=== PATIENT | male | born 1930 | race Caucasian/White ===

== ENCOUNTER 2016-04-25 14:25 | Outpatient (CLI) | payer MEDICARE, OTHER ==
[~2016-04-25 14:25] MED LIST: ASCO500T9 PO; ATOR40TA PO; ENOX40DI SQ; FERR1TAB44 PO; GLIP5TAB13 PO; HYDR-552 PO; INSU100V28 SQ; LACT1CAP61 PO; LEVO500T15 PO; LEVO50TA PO; PROT946L PO; [UNRECOGNIZED DRUG - CODE] PO
== END 2016-04-25 23:59 | disposition home or self-care (01) ==
LOC: RAD 14:25
PROVIDERS: ATTEND Podiatrist Foot & Ankle Surgery
DX: S82.51XA Displaced fracture of medial malleolus of right tibia, initial encounter for closed fracture (principal); M81.8 Other osteoporosis without current pathological fracture; I70.90 Unspecified atherosclerosis; X58.XXXA Exposure to other specified factors, initial encounter; Y93.89 Activity, other specified; Y92.89 Other specified places as the place of occurrence of the external cause; Y99.8 Other external cause status
CPT/HCPCS: 73610-TC

== ENCOUNTER 2016-05-02 14:58 | Outpatient (CLI) | payer MEDICARE, OTHER | END 2016-05-02 23:59 | disposition home or self-care (01) | LOC: WOU 14:58 | PROVIDERS: ATTEND Podiatrist Foot & Ankle Surgery | DX: Z09 Encounter for follow-up examination after completed treatment for conditions other than malignant neoplasm (principal); Z87.81 Personal history of (healed) traumatic fracture; E11.42 Type 2 diabetes mellitus with diabetic polyneuropathy; L85.3 Xerosis cutis; M62.561 Muscle wasting and atrophy, not elsewhere classified, right lower leg; Z89.421 Acquired absence of other right toe(s); Z86.718 Personal history of other venous thrombosis and embolism; I12.9 Hypertensive chronic kidney disease with stage 1 through stage 4 chronic kidney disease, or unspecified chronic kidney disease; E11.22 Type 2 diabetes mellitus with diabetic chronic kidney disease; N18.9 Chronic kidney disease, unspecified | CPT/HCPCS: G0463 ==

== ENCOUNTER 2017-03-01 23:24 | Inpatient (IN) | payer MEDICARE, OTHER ==
[~2017-03-01] VITALS: Ht 175.3 cm; Wt 91.2 kg
--- NOTE | 2017-03-01 23:30 | NUR ---
TO BED 4 AN 86 YO MALE PATIENT BIBFAMILY FROM HOME, PT C/O LEFT SIDED CP X 1 HOUR DENIES SOB. UPON ARRIVAL, PATIENT IS AAOX4, NAD NOTED. VSS. NONDIPHORETIC. PLACED ON CARDIAC AND VS MONITORING. COMFORT MEASURES RENDERED.
[2017-03-02] VITALS (43 sets, daily range): BP systolic 59–151; BP diastolic 42–103
--- NOTE | 2017-03-02 | NUR ---
started a saline lock on the left forearm g18, blood drawn and sent to lab.
[2017-03-02 00:11] LABS: BASOPHILS % (AUTO) 0.4 % (0.0-2.0); EOSINOPHILS # (AUTO) 0.2 /CMM (0.0-0.7); EOSINOPHILS % (AUTO) 1.7 % (0.0-6.0); HEMATOCRIT 34 % (39-51); HEMOGLOBIN 11.2 g/dL (13.5-17.5); LYMPHOCYTES % (AUTO) 9.5 % (20.0-44.0); MEAN CORPUSCULAR HEMOGLOBIN 32 PG (26.0-33.0); MEAN CORPUSCULAR HGB CONC 33 g/dl (31.0-36.0); MEAN CORPUSCULAR VOLUME 96 fL (80-96); MONOCYTES # (AUTO) 0.7 /CMM (0.1-1.30); MONOCYTES % (AUTO) 6.6 % (2.0-12.0); NEUTROPHILS # (AUTO) 8.6 /CMM (1.8-8.9); NEUTROPHILS % (AUTO) 81.8 % (43.0-81.0); PLATELET COUNT (AUTO) 172 /CMM (150-450); RED BLOOD CELL COUNT(AUTO) 3.48 MIL/uL (4.5-6.0); WHITE BLOOD COUNT (AUTO) 10.5 K/uL (4.3-11.0)
[2017-03-02 00:22] LABS: CARBON DIOXIDE 18 mmol/L (21-32); CHLORIDE 108 mmol/L (98-107); CREATININE 2.3 mg/dL (0.6-1.3); GLUCOSE 144 mg/dL (74-106); POTASSIUM 5.6 mmol/L (3.5-5.1); SODIUM SERUM 137 mmol/L (136-145); UREA NITROGEN, BLOOD 53 mg/dL (7-18)
[2017-03-02 00:41] LABS: TROPONIN I 0.764 ng/mL (0.00-0.056)
[2017-03-02] MEDS ORDERED: ASPIRIN 325 MG TABLET ONE (00:49)
[2017-03-02] MEDS ORDERED: IV NS 0.9% 250 ML IV ONE (00:49)
[2017-03-02] MEDS ORDERED: IOHEXOL-350 100 ML VIAL IV ONE (00:49)
--- NOTE | 2017-03-02 00:55 | NUR ---
PT TO CT
[2017-03-02] MEDS ORDERED: ASPIRIN 325 MG TABLET PO ONE (01:00)
[2017-03-02] MEDS ORDERED: IV NS 0.9% 1,000 ML BAG IV ONE (01:00)
[2017-03-02 01:02] LABS: INR 0.95 (0.87-1.13); PROTHROMBIN TIME 9.9 SECS (9.5-12.7)
--- NOTE | 2017-03-02 02:10 | NUR ---
Report given to Macey GARCIA for tele admission and chantel.
[2017-03-02] MEDS ORDERED: HYDROCODONE/APAP 5/325MG 1 EACH TABLET PO PRN (02:30)
--- NOTE | 2017-03-02 02:40 | NUR ---
TELE/RN NOTES RECEIVED PT. FROM ER VIA JAE. PT. IS AWAKE, ALERT AND ORIENTED X3. BREATHING EVEN AND UNLABORED ON 2LPM O2 VIA NC. NO SOB, RESPIRATORY DISTRESS OR COMPLAINTS OF PAIN NOTED AT THIS TIME. PT. HAS NO COMPLAINTS OF CHEST PAIN AT THIS TIME. ORIENTED PT. TO ROOM. PLACED EXTERNAL CAR TOP BOLTER ON PT. PT. WITH LEFT FOREARM 18 GAUGE IV SALINE LOCK PRESENT, PATENT AND INTACT. PT. WITH FAMILY MEMBER PRESENT AT BEDSIDE. BED LOCKED AND IN LOWEST POSITION, SIDE RAILS UP X3, BED ALARM ON, CALL LIGHT WITHIN REACH. AWAITING ADMITTING ORDERS. WILL CONTINUE TO MONITOR.
--- NOTE | 2017-03-02 02:43 | NUR ---
Transferred patient to tele bed 308-2 via als protocol, no incident noted.
[2017-03-02] MEDS ORDERED: MORPHINE SULFATE INJ 2 MG/ML DISP.SYRIN IV PRN ×2 (03:00→08:00)
[2017-03-02] MEDS ORDERED: ZOLPIDEM TARTRATE 5 MG TABLET PO PRN (03:00)
[2017-03-02] MEDS ORDERED: ACETAMINOPHEN 325 MG TABLET PO PRN (03:00)
[2017-03-02] MEDS ORDERED: ONDANSETRON HCL/PF 4 MG/2 ML VIAL IVP PRN (03:00)
--- NOTE | 2017-03-02 03:15 | NUR ---
TELE/RN NOTES PT. IS REFUSING TO CHANGE INTO GOWN. PT. REFUSING FULL BODY CHECK. PT. STATES HE DOES NOT HAVE ANY OPEN WOUNDS AND HE IS COMFORTABLE RIGHT NOW. WILL ATTEMPT AGAIN AT A LATER TIME. WILL CONTINUE TO MONITOR.
[2017-03-02] MEDS: IV NS 0.9% 1,000 ML IV PRN ×2 (04:40→22:07)
--- NOTE | 2017-03-02 06:00 | NUR ---
TELE/RN NOTES PT. CONTINUES TO REFUSE BODY CHECK AND PICTURES. PT. STATES HE JUST WANTS TO REST. NO COMPLAINTS OF CHEST PAIN NOTED AT THIS TIME.
[2017-03-02 06:22] LABS: BASOPHILS % (AUTO) 0.3 % (0.0-2.0); EOSINOPHILS % (AUTO) 0.1 % (0.0-6.0); HEMATOCRIT 31 % (39-51); HEMOGLOBIN 10.3 g/dL (13.5-17.5); LYMPHOCYTES # (AUTO) 0.8 /CMM (0.8-4.8); LYMPHOCYTES % (AUTO) 6.7 % (20.0-44.0); MEAN CORPUSCULAR HEMOGLOBIN 32 PG (26.0-33.0); MEAN CORPUSCULAR HGB CONC 33 g/dl (31.0-36.0); MEAN CORPUSCULAR VOLUME 96 fL (80-96); MONOCYTES # (AUTO) 0.8 /CMM (0.1-1.30); MONOCYTES % (AUTO) 6.6 % (2.0-12.0); NEUTROPHILS # (AUTO) 10.4 /CMM (1.8-8.9); NEUTROPHILS % (AUTO) 86.3 % (43.0-81.0); PLATELET COUNT (AUTO) 156 /CMM (150-450); RDW COEFFICIENT OF VARIATION 15.1 (11.5-15.0); WHITE BLOOD COUNT (AUTO) 12.1 K/uL (4.3-11.0)
--- NOTE | 2017-03-02 06:46 | NUR ---
TELE/RN NOTES PT. IS LYING IN BED RESTING. BREATHING EVEN AND UNLABORED ON 2LPM O2 VIA NC. NO SOB, RESPIRATORY DISTRESS OR COMPLAINTS OF PAIN NOTED AT THIS TIME. NO COMPLAINTS OF CHEST PAIN NOTED AT THIS TIME AND THROUGHOUT SHIFT. PT. WITH EXTERNAL HEEL STAINER PRESENT AND INTACT. CURRENT RHYTHM = SINUS RHYTHM WITH FIRST DEGREE AV BLOCK HR 92. PT. WITH LEFT FOREARM 18 GAUGE IV SALINE LOCK PRESENT, PATENT AND INTACT ADMINISTERING TO PT. NS @ 80ML/HR. ALL PT. NEEDS MET. BED LOCKED AND IN LOWEST POSITION, SIDE RAILS UP X3, BED ALARM ON, CALL LIGHT WITHIN REACH. WILL ENDORSE TO DAYSHIFT NURSE FOR CONTINUITY OF CARE.
[2017-03-02 07:23] LABS: CALCIUM, SERUM 8.9 mg/dL (8.5-10.1); CARBON DIOXIDE 21 mmol/L (21-32); CHLORIDE 108 mmol/L (98-107); CREATININE 2.3 mg/dL (0.6-1.3); GLUCOSE 141 mg/dL (74-106); MAGNESIUM 1.8 mg/dL (1.8-2.4); PHOSPHORUS 3.7 mg/dL (2.5-4.9); POTASSIUM 5.6 mmol/L (3.5-5.1); SODIUM SERUM 139 mmol/L (136-145); UREA NITROGEN, BLOOD 53 mg/dL (7-18)
--- NOTE | 2017-03-02 07:45 | NUR ---
SINGLE END SEWER OPENING NOTE PATIENT IS ALERT AND ORIENTED x3. NO PAIN AT THIS TIME. NO SOB OR DISTRESS NOTED. CALL LIGHT WITHIN REACH. SAFETY MEASURES IMPLEMENTED. ABLE TO COMMUNICATE NEEDS. BEDREST. PATIENT REFUSING BODY CHECK AT THIS TIME. LEFT FOREARM IV INTACT AND PATENT NO REDNESS OR SWELLING NOTED. IV FLUIDS RUNNING AT 80 ML/HR AT THIS TIME. PENDING AM LABS, WILL MONITOR FOR RESULTS. HAS CARDIAC CONSULT WITH DR. HENSLEY. NPO AT [facility] TIME FOR POSSIBLE STRESS TEST. WILL CONTINUE TO MONITOR
[2017-03-02] MEDS ORDERED: HYDROMORPHONE INJ 2 MG/ML DISP.SYRIN IV PRN (08:00)
[2017-03-02] MEDS: glipiZIDE 5 MG TABLET PO SCH ×2 (08:31→16:28)
[2017-03-02] MEDS: FERROUS SULFATE (325 MG) 325 MG/TAB TABLET PO SCH ×2 (08:32→16:28)
[2017-03-02] MEDS: ASPIRIN EC 81 MG TABLET.DR PO SCH (08:32)
[2017-03-02] MEDS: LEVOTHYROXINE SODIUM 50 MCG TABLET PO SCH (08:32)
[2017-03-02] MEDS ORDERED: ENOXAPARIN SODIUM 40 MG/0.4 ML DISP.SYRIN SQ SCH (09:00)
[2017-03-02] MEDS ORDERED: ASCORBIC ACID 500 MG TABLET PO SCH (09:00)
--- NOTE | 2017-03-02 16:58 | NUR ---
RN NOTE CALLED NURSES TO ROOM. PATIENT WAS UNRESPONSIVE IN RESTROOM. MYSELF AND CHARGE NURSE WENT TO CHECK ON PATIENT, PATIENT WAS SITTING ON TOILET SLUMPED OVER KNEES. PATIENT WAS STILL NOT RESPONDING. NOT ABLE TO ASSESS PATIENT AND NO PULSE WAS TAKEN. PATIENT WAS THEN MOVED OVER TO BED WITH ASSISTANCE. Addendum: 03/02/17 at 1807 by JAVIER CHRISTINA RN INCIDENT #:[id number]
--- NOTE | 2017-03-02 16:58 | NUR ---
RN NOTE PATIENT WAS LIFTED BY THREE NURSES AND CARRIED OVER TO BED WITH HELP OF TWO GREASE BUFFER'S WELL. PATIENT LAID ON BED, WHERE CPR WAS INITIATED
--- NOTE | 2017-03-02 16:59 | NUR ---
RN NOTE CODE BLUE WAS CALLED. PATIENT PLACED ON PADS, CPR INITIATED. ASSISTED VENTILATION VIA BVM
--- NOTE | 2017-03-02 17:00 | NUR ---
RN NOTE CODE BLUE TEAM ARRIVES TO ROOM 311-2.
--- NOTE | 2017-03-02 17:03 | NUR ---
JOSE NOTE PATIENT INTUBATED BY ER PHYSICIAN WITH 7 04/22 ET TUBE. CPR IN PROGRESS. Addendum: 03/02/17 at 1725 by JAVIER CHRISTINA RN VENT SETTINGS FOLLOWED AC: 16 TIDAL VOLUME: 600 PEEP: 5 FI 02: 100%
--- NOTE | 2017-03-02 17:05 | NUR ---
RN NOTE POSITIVE ROSC. 100 MG ROCORODIUM/ 20 MG OF ETOMIDATE BY ER, RN.
--- NOTE | 2017-03-02 17:07 | NUR ---
RN NOTE VITAL SIGNS BP: 184/107 P: 142 02: WAS NOT ABLE TO READ T: ATTEMPTED UNABLE TO OBTAIN
--- NOTE | 2017-03-02 17:09 | NUR ---
RN NOTE PRIMARY MD- DR. PERNELL SAMPSON AWARE ABOUT LYDIA BLUE
--- NOTE | 2017-03-02 17:09 | NUR ---
RN NOTE EKG POST CARDIAC ARREST COMPLETED
--- NOTE | 2017-03-02 17:15 | NUR ---
RN NOTE PATIENT TRANSFERRED TO ICU -ROOM 254.
--- NOTE | 2017-03-02 17:17 | NUR ---
RN NOTE CODE STEMI CALLED BY ER PHYSICIAN
--- NOTE | 2017-03-02 17:30 | NUR ---
NAIL ASSEMBLY MACHINE OPERATOR; RECEIVED PT S/P CODE BLUE AND CODE STEMI. PT INTUBATED VIA ETT 7.5 ETT, 23CM AT THE LIP LINE. PT AT THIS TIME UNRESPONSIVE, PT AT THIS TIME NO GAG REFLEX, PUPIL EQUAL AND REACTIVE SLUGGISH AT 2MM. MID LINE STARTED TO LEFT UPPER ARM 18G. ORDERS ENTERED FOR STAT CHEST XRAY, CHEMISTRY, ABG. WILL WAIT FOR RESULTS AND NOTIFY MDS Addendum: 03/02/17 at 1806 by JACI GERBER RN VENT SETTING AC 16, TV 500, 100% FIO2 PEEP 5
[2017-03-02 17:35] LABS: ABG BASE EXCESS -16.4 mmol/L; ABG OXYGEN SATURATION 98.6 % (92.0-98.5); ABG PCO2 37.5 mmHg (35.0-45.0); ABG PH 7.121 (7.350-7.450); ABG PO2 305.6 mmHg (75.0-100.0); AaDO2 369.9 mmHg; COHb 0.2 % (0.5-1.5); MetHb 0.8 % (0.0-1.5); O2Hb 97.6 % (94.0-97.0); PEEP,BG 5 cm H2O; SITE, ABG Right Radial; VENT MODE, BG AC 16 500; VT, ABG 500 mL
--- NOTE | 2017-03-02 17:45 | NUR ---
RT NOTE: PATIENT WAS ORALLY INTUBATED BY WITH 7.5 ETT SECURED AT 23CM MID LIP LINE. POSITIVE COLOR CHANGE ON CAPNOMETER. BILATERAL B/S NOTED-CLEAR LEFT AND DIMINISHED RIGHT THROUGHOUT LUNGS. PATIENT WAS TRANSPORTED TO ICU AND PLACED ON PB 840 VENT. SETTINGS PER MD ORDER. VENT ALARMS SET AND AUDIBLE. VENT PLUGGED INTO RED OUTLET. AMBU BAG AT [facility]. ABG DONE AND REPORTED TO CHARGE NURSE(KURT).
[2017-03-02] MEDS ORDERED: ASPIRIN 300 MG/SUPP.RECT RC STA (17:53)
[2017-03-02 17:57] LABS: BASOPHILS % (AUTO) 0.2 % (0.0-2.0); EOSINOPHILS % (AUTO) 0.2 % (0.0-6.0); HEMATOCRIT 32 % (39-51); HEMOGLOBIN 10.5 g/dL (13.5-17.5); LYMPHOCYTES # (AUTO) 2.3 /CMM (0.8-4.8); LYMPHOCYTES % (AUTO) 18.8 % (20.0-44.0); MEAN CORPUSCULAR HEMOGLOBIN 32 PG (26.0-33.0); MEAN CORPUSCULAR HGB CONC 33 g/dl (31.0-36.0); MEAN CORPUSCULAR VOLUME 97 fL (80-96); MONOCYTES # (AUTO) 0.8 /CMM (0.1-1.30); MONOCYTES % (AUTO) 6.9 % (2.0-12.0); NEUTROPHILS # (AUTO) 8.9 /CMM (1.8-8.9); NEUTROPHILS % (AUTO) 73.9 % (43.0-81.0); PLATELET COUNT (AUTO) 145 /CMM (150-450); RDW COEFFICIENT OF VARIATION 15.2 (11.5-15.0); RED BLOOD CELL COUNT(AUTO) 3.29 MIL/uL (4.5-6.0)
--- NOTE | 2017-03-02 18:06 | NUR ---
MEDICAL TECHNICIAN; MD DR. WILSON NOTIFIED REGARDING ABG RESULTS, ORDERS GIVEN. RT NOTIFIED. VENT SETTINGS OF AC 24, TV 600, TITRATE FIO2. DR. HENSLEY NOTIFIED REGARDING CODE BLUE. NEW ORDERS GIVEN TO START HEPARIN DRIP PER PROTOCOL.
[2017-03-02 18:08] LABS: AMYLASE 27 U/L (25-115); CALCIUM, SERUM 9.5 mg/dL (8.5-10.1); CARBON DIOXIDE 16 mmol/L (21-32); CHLORIDE 109 mmol/L (98-107); CREATININE 2.6 mg/dL (0.6-1.3); GLUCOSE 214 mg/dL (74-106); MAGNESIUM 1.8 mg/dL (1.8-2.4); POTASSIUM 4.6 mmol/L (3.5-5.1); SODIUM SERUM 141 mmol/L (136-145); UREA NITROGEN, BLOOD 53 mg/dL (7-18)
[2017-03-02 18:20] LABS: CHOLESTEROL 126 mg/dL (<200); HDL CHOLESTEROL 46 mg/dL (40-60); LDL 73 mg/dL (0-99); TRIGLYCERIDES 116 mg/dL (30-150)
[2017-03-02] MEDS ORDERED: HEPARIN SODIUM, PORCINE 5000 UNITS/1 ML VIAL IV ONE (18:30)
[2017-03-02 18:32] LABS: TROPONIN I 0.836 ng/mL (0.00-0.056)
[2017-03-02] MEDS: HEPARIN INFUSION/D5W 500 ML IV PRN (19:19)
--- NOTE | 2017-03-02 19:30 | NUR ---
RN INITIAL NOTES RECEIVED THE PATIENT LETHARGIC ON BED, POST CODE BLUE @ 1700 AND INTUBATED. RESPONSIVE TO PAINFUL STIMULI. VENT SETTINGS AC 24, TV 600, FIO2 80%, PEEP5, 7.5/23@LIP, SATURATING WELL, NO S/S OF RESP DISTRESS. CURRENTLY JUNCTIONAL ON THE MONITOR, HR 90'S. PALMER CATH IN PLACE. LEFT FOREARM 18 AND LEFT UPPER ARM MIDLINE WITH NS @ 125MLS/HR AND HEPARIN DRIP @ 1300 UNITS/HR. PTT TO BE DRAWN ON 03/03 @ 0030. BILATERAL WRIST RESTRAINTS IN PLACE FOR PATIENT SAFETY. BED LOW AND LOCKED, SIDERAILS UP, BED ALARM ON. WILL MONITOR
--- NOTE | 2017-03-02 19:40 | NUR ---
RN NOTES NOTIFIED DR WILSON ABOUT 0 ABG RESULTS FOR THE PATIENT. PER MD, NO CHANGES TO VENT SETTINGS.
[2017-03-02 19:43] LABS: ABG BASE EXCESS -10.9 mmol/L; ABG OXYGEN SATURATION 98.7 % (92.0-98.5); ABG PCO2 21.8 mmHg (35.0-45.0); ABG PH 7.376 (7.350-7.450); AaDO2 153.5 mmHg; COHb 0.3 % (0.5-1.5); MetHb 0.8 % (0.0-1.5); O2Hb 97.6 % (94.0-97.0); PEEP,BG 5 cm H2O; SITE, ABG Right Brachial; VT, ABG 600 mL
[2017-03-02] MEDS: PROPOFOL 100 ML IV PRN (19:57)
--- NOTE | 2017-03-02 21:15 | NUR ---
RN SAKSHI INSERTED ORAL GASTRIC TUBE PER MD ORDER. PLACEMENT VERIFIED VIA AUSCULTATION AND ASPIRATION OF GASTRIC FLUID. VERIFIED WITH SENIOR UI DESIGNERJOSE REDDY WELL.
[2017-03-02] MEDS ORDERED: NOREPINEPHRINE 4 MG/4 ML AMPUL IV ONE (21:56)
--- NOTE | 2017-03-02 21:56 | NUR ---
RN NOTES TALKED TO DR ORTA TO NOTIFY HIM OF BP 79/59 WITH HIGHEST SBP @ 80'S. HR IS 95. CURRENTLY RUNNING NS @ 125MLS/HR WITH MINIMAL URINE OUTPUT. DR ORTA ORDERED LEVOPHED DRIP REGULAR CONCENTRATION TO BE STARTED
[2017-03-02] MEDS ORDERED: NOREPINEPHRINE 8 MG in IV D5W 500 ML IV PRN ×4 (22:00)
[2017-03-02] MEDS: ATORVASTATIN 40 MG TABLET PO SCH (22:07)
[2017-03-02] MEDS: NOREPINEPHRINE 8 MG in IV D5W 500 ML IV PRN (22:13)
[2017-03-03] VITALS (104 sets, daily range): BP systolic 45–205; BP diastolic 25–116
--- NOTE | 2017-03-03 01:57 | NUR ---
RN SAKSHI ARENAS FROM LAB REPORTED PATIENT'S PTT > 170; PER PROTOCOL, WILL HOLD INFUSION FOR 60MIN THEN RESUME AT RATE REDUCED BY 250 UNITS/HR. THEN REPEAT PTT AFTER 6 HRS WHICH WILL BE @ 0800
[2017-03-03] MEDS: PROPOFOL 100 ML IV PRN ×2 (02:25→17:41)
[2017-03-03 04:55] LABS: BASOPHILS % (AUTO) 0.1 % (0.0-2.0); EOSINOPHILS % (AUTO) 0.4 % (0.0-6.0); HEMATOCRIT 27 % (39-51); HEMOGLOBIN 8.9 g/dL (13.5-17.5); LYMPHOCYTES # (AUTO) 1.4 /CMM (0.8-4.8); LYMPHOCYTES % (AUTO) 12.6 % (20.0-44.0); MEAN CORPUSCULAR HEMOGLOBIN 32 PG (26.0-33.0); MEAN CORPUSCULAR HGB CONC 33 g/dl (31.0-36.0); MEAN CORPUSCULAR VOLUME 97 fL (80-96); MONOCYTES # (AUTO) 0.9 /CMM (0.1-1.30); MONOCYTES % (AUTO) 7.9 % (2.0-12.0); NEUTROPHILS # (AUTO) 8.8 /CMM (1.8-8.9); PLATELET COUNT (AUTO) 156 /CMM (150-450); RDW COEFFICIENT OF VARIATION 14.9 (11.5-15.0); RED BLOOD CELL COUNT(AUTO) 2.79 MIL/uL (4.5-6.0); WHITE BLOOD COUNT (AUTO) 11.2 K/uL (4.3-11.0)
[2017-03-03] MEDS: IV NS 0.9% 1,000 ML IV PRN ×3 (04:59→23:11)
[2017-03-03 05:21] LABS: ALANINE AMINOTRANSFERASE 310 U/L (12-78); ALBUMIN 2.4 g/dL (3.4-5.0); ALKALINE PHOSPHATASE 110 U/L (46-116); ASPARTATE AMINOTRANSFERASE 327 U/L (15-37); BILIRUBIN,TOTAL 0.7 mg/dL (0.2-1.0); CALCIUM, SERUM 8.6 mg/dL (8.5-10.1); CARBON DIOXIDE 15 mmol/L (21-32); CHLORIDE 111 mmol/L (98-107); CREATININE 2.6 mg/dL (0.6-1.3); GLUCOSE 199 mg/dL (74-106); MAGNESIUM 1.6 mg/dL (1.8-2.4); PHOSPHORUS 2.6 mg/dL (2.5-4.9); SODIUM SERUM 141 mmol/L (136-145); TOTAL PROTEIN, SERUM 5.4 g/dL (6.4-8.2); UREA NITROGEN, BLOOD 54 mg/dL (7-18)
[2017-03-03 05:24] LABS: TROPONIN I 3.042 ng/mL (0.00-0.056)
[2017-03-03 05:26] LABS: CHOLESTEROL 111 mg/dL (<200); HDL CHOLESTEROL 42 mg/dL (40-60); LDL 57 mg/dL (0-99); THYROID STIMULATING HORMONE 1.313 uIU/mL (0.358-3.74); TRIGLYCERIDES 63 mg/dL (30-150)
--- NOTE | 2017-03-03 06:30 | NUR ---
RN CLOSING NOTES HEPARIN DRIP CURRENTLY @ 1050 UNITS/HR, REPEAT PTT @ 0800. LEVO DRIP @ 2MCG/MIN. DIPRIVAN @ 15MCG/KG/MIN. ALL OTHER DUE MEDS GIVEN, AM CARE PROVIDED. OTHERWISE PT REMAINS STABLE. WILL ENDORSE CONTINUITY OF CARE TO AM RN
--- NOTE | 2017-03-03 08:00 | NUR ---
ICU/RN INITIAL NOTES,AM RECEIVED REPORT FROM NIGHT NURSE. PT SEDATED, INTUBATED ETT 7.5, 23CM AT THE LIP. PT ON VENT SETTINGS ORDERED BY MD, NO ACUTE DISTRESS NOTED AT THIS TIME. PT ACCELERATED JUNCTIONAL ON TELE. PALMER CATH IN PLACE, LOW URINE OUTPUT NOTED, MD AWARE. HEPARIN DRIP, LEVOPHED AND DIPRIVAN INFUSING PER PROTOCOL AND PER MD ORDER. PT CURRENTLY NPO EXCEPT MEDS. OG TUBE IN PLACE, VERIFIED. ALL NEEDS WILL BE ATTENDED TO, SAFETY MEASURES TAKEN, BED IN LOW POSITION, SIDE RAILS UP, CALL LIGHT WITHIN REACH. WILL CONTINUE CARE. BILATERAL WRIST RESTRAINTS IN PLACE AND ASSESSED PER PROTOCOL.
[2017-03-03] MEDS ORDERED: ETOMIDATE 2 MG/ML VIAL IV ONE ×2 (08:31→11:00)
[2017-03-03] MEDS: LEVOTHYROXINE SODIUM 50 MCG TABLET PO SCH (08:31)
[2017-03-03] MEDS ORDERED: ROCURONIUM BROMIDE 50 MG/5 ML IV ONE ×3 (08:31→12:28)
[2017-03-03] MEDS: glipiZIDE 5 MG TABLET PO SCH ×2 (08:32→17:10)
[2017-03-03] MEDS: ASPIRIN EC 81 MG TABLET.DR PO SCH (08:32)
--- NOTE | 2017-03-03 09:00 | NUR ---
ICU/RN: SEDATION VACATION, PT OPENS EYES, FOLLOWS COMMANDS. WILL CONTINUE TO MONITOR AND ASSESS
--- NOTE | 2017-03-03 09:10 | NUR ---
ICU/RN: PTT >170, HEPARIN DRIP HELD WILL RESTART IN ONE HOUR PER PROTOCOL.
--- NOTE | 2017-03-03 09:30 | NUR ---
ICU/RN: PT SAW AND ASSESSED BY , PT OPENS EYES, FOLLOWS COMMANDS. PT ON SIMV 4, RATE 12, FIO2 40%. PEEP 5, WILL CONTINUE WEANING AND SEE HOW PT TOLERATES IT.
--- NOTE | 2017-03-03 10:00 | NUR ---
RT PER DR WILSON PATIENT PLACED ON VENT WEANING MODE. PATIENT OFF SEDATION AND RESPONDING TO VERBAL COMMANDS Addendum: 03/03/17 at 1113 by ISABEL POWELL RT Amended: Links added.
--- NOTE | 2017-03-03 10:10 | NUR ---
ICU/RN: PER DR. GIMENEZ WE ARE NOT TO RESUME THE HEPARIN DRIP AT THIS TIME. WILL REASSESS AT A LATER TIME.
[2017-03-03 10:20] LABS: ABG BASE EXCESS -9.8 mmol/L; ABG PCO2 27.7 mmHg (35.0-45.0); ABG PH 7.343 (7.350-7.450); ABG PO2 121.1 mmHg (75.0-100.0); AaDO2 132.2 mmHg; COHb 0.3 % (0.5-1.5); O2Hb 95.7 % (94.0-97.0); SITE, ABG Right Radial
--- NOTE | 2017-03-03 10:30 | NUR ---
ICU/RN: PT EXTUBATED, DIFFICULTY IN BREATHING NOTED, USE OF ACCESSORY MUSCLES. PT ATTEMPTING TO COUGH, HOWEVER; PT IS TO WEAK TO COUGH. WILL CONTINUE TO CLOSELY MONITOR.
--- NOTE | 2017-03-03 10:40 | NUR ---
ICU/RN: RESPIRATORY DISTRESS NOTED, PT UNABLE TO BREATH, O2 SATURATION DECREASING, PER DR. WILSON PT NEEDED TO BE RE-INTUBATED. WILL CONTINUE CARE
--- NOTE | 2017-03-03 11:05 | NUR ---
ICU/RN: CODE BLUE INITIATED AT 1056, SEE CODE BLUE FORM. SUCCESSFUL CODE, ACHIEVED ROSC. WILL CONTINE TO CLOSELY MONITOR
--- NOTE | 2017-03-03 11:06 | NUR ---
RT AT 1056 CODE BLUE CALLED OVER HEAD AND ARRIVED AT PATIENTS ROOM AND IMMEDIATELY BEGAN CPR. PULSE REGAINED AND PATIENT PLACED BACK ON [facility] VENT.
[2017-03-03 11:25] LABS: ABG BASE EXCESS -19.8 mmol/L; ABG OXYGEN SATURATION 98.1 % (92.0-98.5); ABG PCO2 30.7 mmHg (35.0-45.0); ABG PH 7.077 (7.350-7.450); ABG PO2 205.4 mmHg (75.0-100.0); AaDO2 476.9 mmHg; COHb 0.3 % (0.5-1.5); MetHb 0.9 % (0.0-1.5); O2Hb 96.9 % (94.0-97.0); PEEP,BG 0 cm H2O; SITE, ABG Right Radial
[2017-03-03] MEDS ORDERED: SODIUM BICARBONATE SYR 50 MEQ/50 ML DISP.SYRIN IV ONE ×3 (11:30→16:40)
--- NOTE | 2017-03-03 11:38 | NUR ---
RT S/P CARDIAC ARREST, ABG DONE, VENT SETTINGS CHANGED TO VT [address] WILSON Addendum: 03/03/17 at 1156 by ISABEL POWELL RT Amended: Links added.
[2017-03-03 11:41] LABS: BASOPHILS # (AUTO) 0.1 /CMM (0.0-0.2); BASOPHILS % (AUTO) 0.5 % (0.0-2.0); EOSINOPHILS # (AUTO) 0.1 /CMM (0.0-0.7); EOSINOPHILS % (AUTO) 0.7 % (0.0-6.0); HEMATOCRIT 27 % (39-51); HEMOGLOBIN 8.7 g/dL (13.5-17.5); LYMPHOCYTES # (AUTO) 4.9 /CMM (0.8-4.8); MEAN CORPUSCULAR HEMOGLOBIN 32 PG (26.0-33.0); MEAN CORPUSCULAR HGB CONC 33 g/dl (31.0-36.0); MEAN CORPUSCULAR VOLUME 97 fL (80-96); MONOCYTES # (AUTO) 0.9 /CMM (0.1-1.30); NEUTROPHILS # (AUTO) 11.4 /CMM (1.8-8.9); NEUTROPHILS % (AUTO) 65.8 % (43.0-81.0); PLATELET COUNT (AUTO) 166 /CMM (150-450); RDW COEFFICIENT OF VARIATION 15.3 (11.5-15.0); RED BLOOD CELL COUNT(AUTO) 2.73 MIL/uL (4.5-6.0); WHITE BLOOD COUNT (AUTO) 17.4 K/uL (4.3-11.0)
[2017-03-03 11:46] LABS: CARBON DIOXIDE 11 mmol/L (21-32); CHLORIDE 111 mmol/L (98-107); CREATININE 2.9 mg/dL (0.6-1.3); GLUCOSE 302 mg/dL (74-106); POTASSIUM 4.7 mmol/L (3.5-5.1); SODIUM SERUM 140 mmol/L (136-145); UREA NITROGEN, BLOOD 55 mg/dL (7-18)
[2017-03-03 11:59] LABS: TROPONIN I 3.416 ng/mL (0.00-0.056)
[2017-03-03 12:09] LABS: INR 1.27 (0.87-1.13); PROTHROMBIN TIME 13.2 SECS (9.5-12.7)
--- NOTE | 2017-03-03 12:15 | NUR ---
ICU/RN: SECOND CODE BLUE INITIATED AT 1154, CODE SUCCESSFUL. DR. HENSLEY AND AT BEDSIDE, WILL FOLLOW NEW ORDERS. ACHIEVED ROSC. ABG DONE. VENT CHANGES MADE APPROPRIATELY.
[2017-03-03 12:26] LABS: ALBUMIN 2.3 g/dL (3.4-5.0); BILIRUBIN,DIRECT 0.2 mg/dL (0.0-0.2); BILIRUBIN,TOTAL 0.6 mg/dL (0.2-1.0); MAGNESIUM 1.7 mg/dL (1.8-2.4); PHOSPHORUS 4.9 mg/dL (2.5-4.9); TOTAL PROTEIN, SERUM 5.4 g/dL (6.4-8.2)
[2017-03-03] MEDS ORDERED: EPINEPHRINE (1:10,000) SYRINGE 1 MG/10 ML DISP.SYRIN IVP ONE ×2 (12:28→16:39)
[2017-03-03] MEDS ORDERED: CALCIUM CHLORIDE 1,000 MG/10 ML DISP.SYRIN IV ONE (12:28)
--- NOTE | 2017-03-03 12:30 | NUR ---
ICU/RN: REPEAT ECHO DONE. BILATERAL VENOUS DOPPLER ON LOWER EXTREMITIES DONE, DVT'S SEEN IN BOTH LEGS. MD NOTIFIED.
[2017-03-03 12:36] LABS: ABG BASE EXCESS -10.7 mmol/L; ABG OXYGEN SATURATION 98.1 % (92.0-98.5); ABG PCO2 24.9 mmHg (35.0-45.0); ABG PH 7.352 (7.350-7.450); ABG PO2 227.5 mmHg (75.0-100.0); AaDO2 316.8 mmHg; COHb 0.3 % (0.5-1.5); MetHb 1.3 % (0.0-1.5); O2Hb 96.5 % (94.0-97.0); PEEP,BG 0 cm H2O; SITE, ABG Right Radial
[2017-03-03] MEDS ORDERED: FEE PK DOSING 1 MIN EA MC ONE (12:51)
[2017-03-03] MEDS ORDERED: VANCOMYCIN 1 GM in IV D5W 250 ML IV SCH (14:00)
[2017-03-03] MEDS: PIPERACILLIN /TAZOBACTAM 2.25 G in IV D5W 50 ML IV SCH ×2 (14:47→20:46)
--- NOTE | 2017-03-03 16:00 | NUR ---
ICU/RN: PER , WE ARE TO RESUME HEPARIN DRIP AT 900 UNITS/HR. THEN DO A REPEAT APTT IN 6 HOURS AND ADJUST PER PROTOCOL.
[2017-03-03] MEDS: VANCOMYCIN 1 GM in IV D5W 250 ML IV SCH (17:09)
[2017-03-03] MEDS: HEPARIN INFUSION/D5W 500 ML IV PRN (17:42)
[2017-03-03] MEDS: NOREPINEPHRINE 8 MG in IV D5W 500 ML IV PRN (17:43)
--- NOTE | 2017-03-03 17:45 | NUR ---
ICU/RN: INFORMED PT IS AGITATED, INCREASED HEART RATE. ORDERS RECEIVED TO RESUME DIPRIVAN PER PROTOCOL
--- NOTE | 2017-03-03 18:35 | NUR ---
ICU/RN ENDING NOTES,AM REPORT WILL BE ENDORSED TO NIGHT NURSE FOR CONTINUATION OF CARE. PT ON VENT SETTINGS ORDERED. ETT 7.5, 23 AT THE LIP. OG IN PLACE. PT ON TELE, ACCELERATED JUNCTIONAL. PALMER IN PLACE, LOW URINE OUTPUT NOTED. MD AWARE. POST 2 CODE BLUES. PT IS NON RESPONSIVE, DOES NOT FOLLOW COMMANDS. DIPRIVAN JUST STARTED FOR ELEVATED HR, AGITATION.DIP INFUSING AT 10MCG. PICC LINE INSERTED IN RIGHT UPPER ARM. LEVO, HEPARIN, IV FLUIDS INFUSING. ALL NEEDS MET, SAFETY MEASURES TAKEN, BED IN LOW POSITION, SIDE RIALS UP, CALL LIGHT WITHIN REACH. AT BEDSIDE.
--- NOTE | 2017-03-03 20:13 | NUR ---
RN:ICU: PT RECEIVED IN BED, AROUSABLE TO PAINFUL STIMULI, OPENING EYES SPONTANEOUSLY. PT FIGHTING THE VENTILATOR CAUSING IT TO ALARM. SEDATION INCREASED PER PROTOCOL BY 5MCG/KG/MIN FOR COMFORT. D/W DNP REGARDING APPARENT PAIN. ORDERS FOR DILAUDID RECEIVED. D/W DNP REGARDING INCREASED HR 120-130'S SINUS TACHY/AFIB. PER PIPELINE SUPERINTENDENT DIVISION CONTINUE TO MONITOR HR. S/P CODE BLUE ABG RESULTS RELAYED TO DNP NEW ORDERS TO DECREASE RATE TO 20. ADDITIONALLY NEW ORDERS RECEIVED TO GIVE 2GM IV MAGNESIUM TO REPLACE FOR MAG LEVEL 1.7. AT THE BEDSIDE AND UPDATED REGARDING POC. PT ON LOW DOSE LEVOPHED TO SUPPORT BP. WHEN INCREASING SEDATION FOR COMFORT, BP IN TURN DROPS, THERE FOR REQUIRING AN INCREASE IN THE LEVOPHED. PT ON HEPARIN GTT 900 UNITS/HR, NEXT PTT AT 2200. WILL CONTINUE TO MONITOR CLOSELY.
[2017-03-03] MEDS ORDERED: HYDROMORPHONE 1 MG/1 ML DISP.SYRIN IV PRN (20:30)
[2017-03-03] MEDS: Magnesium 1GM/D5W 100ML PREMIX 100 ML IV SCH ×2 (20:45→21:56)
[2017-03-03] MEDS: HYDROMORPHONE INJ 2 MG/ML DISP.SYRIN IV PRN (20:46)
[2017-03-03] MEDS ORDERED: BUMETANIDE INJ 0.25 MG/ML VIAL ONE (21:54)
[2017-03-03] MEDS: ATORVASTATIN 40 MG TABLET PO SCH (21:58)
[2017-03-03] MEDS ORDERED: BUMETANIDE INJ 0.25 MG/ML VIAL IV ONE (22:00)
--- NOTE | 2017-03-03 22:26 | NUR ---
RN:ICU: SPOKE WITH DNP REGARDING HEPARIN GTT BEING USED FOR BILATERAL LOWER EXTREMITY DVT'S INSTEAD OF ACUTE HI. ORDERS TO CHANGE HEPARIN GTT TO NON-ACS. PTT DRAWN AND SENT TO LAB. PENDING RESULTS. WILL FOLLOW PROTOCOL. D/W DNP REGARDING PULMONARY VASCULAR CONGESTION AND LARGE RIGHT EFFUSION ON TODAY'S XRAY. ORDERS TO DECREASE IVF TO 125ML/HR AND GIVEN BUMEX 1 MG ONCE. ORDERS CARRIED OUT. WILL CONTINUE TO MONITOR CLOSELY.
[2017-03-04] VITALS (104 sets, daily range): BP systolic 83–128; BP diastolic 50–84
--- NOTE | 2017-03-04 00:59 | NUR ---
RN:ICU: NEW ORDER PLACED FOR HEPARIN GTT THE PROTOCOL WAS CHANGED FROM ACS TO NON-ACS. SAME BAG OF MEDICATION INFUSING BUT IT APPEARS IF THE MEDICATION WAS NOT SCANNED. HEPARIN GTT RATE CHANGED FROM 900 UNITS/HR TO 750 UNITS PER HOUR FOR PTT 83 BASED ON NON-ACS PROTOCOL. HANH GARCIA VERIFIED. NO BLEEDING NOTED. SEE D/C MEDICATIONS FOR PREVIOUS RATES OF HEPARIN GTT BEFORE NEW ORDERS WAS PLACED.
[2017-03-04] MEDS: HYDROMORPHONE INJ 2 MG/ML DISP.SYRIN IV PRN ×3 (02:54→21:01)
--- NOTE | 2017-03-04 04:30 | NUR ---
RN:ICU: PT PREMEDICATED WITH DILAUDID PRIOR TO BED BATH/ADL'S. PT BEGAN TO FIGHT VENT, ALONG WITH GRIMACING. DIPRIVAN INCREASED PER PROTOCOL FOR SEDATION. BILATERAL SOFT WRIST RESTRAINTS IN PLACE FOR PT SAFETY HE DOES APPEAR TO WAKE UP AT TIMES. SPUTUM SAMPLE COLLECTED PER PROTOCOL. PER HEPARIN GTT FOR NON-ACS PTT 68 NO CHANGE AND PERFORM DAILY PTT. WILL CONTINUE TO MONITOR CLOSELY.
[2017-03-04 04:42] LABS: BASOPHILS % (AUTO) 0.3 % (0.0-2.0); EOSINOPHILS % (AUTO) 0.3 % (0.0-6.0); HEMATOCRIT 24 % (39-51); HEMOGLOBIN 7.9 g/dL (13.5-17.5); LYMPHOCYTES # (AUTO) 1.2 /CMM (0.8-4.8); MEAN CORPUSCULAR HEMOGLOBIN 32 PG (26.0-33.0); MEAN CORPUSCULAR HGB CONC 33 g/dl (31.0-36.0); MEAN CORPUSCULAR VOLUME 95 fL (80-96); MONOCYTES # (AUTO) 0.6 /CMM (0.1-1.30); MONOCYTES % (AUTO) 5.2 % (2.0-12.0); NEUTROPHILS # (AUTO) 10.2 /CMM (1.8-8.9); NEUTROPHILS % (AUTO) 84.2 % (43.0-81.0); PLATELET COUNT (AUTO) 165 /CMM (150-450); RDW COEFFICIENT OF VARIATION 15.3 (11.5-15.0); RED BLOOD CELL COUNT(AUTO) 2.49 MIL/uL (4.5-6.0); WHITE BLOOD COUNT (AUTO) 12.1 K/uL (4.3-11.0)
[2017-03-04 04:57] LABS: ALANINE AMINOTRANSFERASE 261 U/L (12-78); ALBUMIN 2.1 g/dL (3.4-5.0); ALKALINE PHOSPHATASE 99 U/L (46-116); ASPARTATE AMINOTRANSFERASE 135 U/L (15-37); BILIRUBIN,TOTAL 0.8 mg/dL (0.2-1.0); CALCIUM, SERUM 7.6 mg/dL (8.5-10.1); CARBON DIOXIDE 21 mmol/L (21-32); CHLORIDE 111 mmol/L (98-107); GLUCOSE 250 mg/dL (74-106); MAGNESIUM 1.8 mg/dL (1.8-2.4); PHOSPHORUS 2.2 mg/dL (2.5-4.9); SODIUM SERUM 143 mmol/L (136-145); UREA NITROGEN, BLOOD 54 mg/dL (7-18)
[2017-03-04 05:10] LABS: TROPONIN I 2.527 ng/mL (0.00-0.056)
[2017-03-04] MEDS: PIPERACILLIN /TAZOBACTAM 2.25 G in IV D5W 50 ML IV SCH ×3 (05:19→17:12)
--- NOTE | 2017-03-04 06:55 | NUR ---
RN:ICU: AM CHEST XRAY RESULTS REPORTED TO DR ORTA. ORDERS FOR STAT CT CHEST WITHOUT CONTRAST. PT TAKEN TO CT VIA ACLS PROTOCOL, WITH RT AND CT TRANSPORT. UPON ARRIVAL BACK TO ICU DR HENSLEY AT THE BEDSIDE. UPDATES GIVEN. WILL ENDORSE TO ONCOMING SHIFT TO FOLLOW UP WITH CT CHEST RESULTS.
[2017-03-04] MEDS: PROPOFOL 100 ML IV PRN (07:35)
[2017-03-04] MEDS: LEVOTHYROXINE SODIUM 50 MCG TABLET PO SCH (07:36)
--- NOTE | 2017-03-04 08:00 | NUR ---
ICU/RN INITIAL NOTES,AM RECEIVED REPORT FROM NIGHT NURSE. PT SEDATED, INTUBATED ETT 7.5, 23CM AT THE LIP. PT ON VENT SETTINGS ORDERED BY MD, NO ACUTE DISTRESS NOTED AT THIS TIME. PT A.FIB/A.FLUTTER ON TELE. PALMER CATH IN PLACE, URINE OUTPUT NOTED, BUMEX ADMINISTERED OVER NIGHT. HEPARIN DRIP INFUSING AT 750 UNITS/HR PER PROTOCOL. LEVOPHED FOR BP SUPPORT AT 5MCG PER MD ORDER. PT CURRENTLY NPO EXCEPT MEDS. OG TUBE IN PLACE, VERIFIED. CT CHEST DONE, RESULTS RELAYED TO AND DR. WILSON. AT BEDSIDE. ALL NEEDS WILL BE ATTENDED TO, SAFETY MEASURES TAKEN, BED IN LOW POSITION, SIDE RAILS UP, CALL LIGHT WITHIN REACH. WILL CONTINUE CARE. BILATERAL WRIST RESTRAINTS IN PLACE AND ASSESSED PER PROTOCOL.
--- NOTE | 2017-03-04 08:05 | NUR ---
ICU/RN: SEDATION VACATION. WILL ASSESS MENTAL STATUS AND DISCUSS IF NEEDED TO RESTART DIPRIVAN.
[2017-03-04 08:06] LABS: ABG BASE EXCESS -4.8 mmol/L; ABG OXYGEN SATURATION 98.1 % (92.0-98.5); ABG PCO2 18.7 mmHg (35.0-45.0); ABG PH 7.557 (7.350-7.450); ABG PO2 190.7 mmHg (75.0-100.0); AaDO2 144.8 mmHg; COHb 0.3 % (0.5-1.5); MetHb 1.2 % (0.0-1.5); O2Hb 96.6 % (94.0-97.0); PEEP,BG 0 cm H2O; SITE, ABG Right Radial; VT, ABG 650 mL
--- NOTE | 2017-03-04 09:00 | NUR ---
ICU/RN: MD ROUNDS PT ASSESSED BY DR. WILSON. PER NO NEED TO RE-START DIPRIVAN. PAIN MEDICATIONS AVAILABLE IF NEEDED. ALSO DISCUSSED THE CT CHEST RESULTS WITH . AWAITING FOR DR. NAVARRO FOR POSSIBLE CHEST TUBE INSERTION IF DEEMED NECESSARY.
[2017-03-04] MEDS: glipiZIDE 5 MG TABLET PO SCH (09:01)
[2017-03-04] MEDS: ASPIRIN EC 81 MG TABLET.DR PO SCH (09:01)
--- NOTE | 2017-03-04 09:55 | NUR ---
WOUND CARE CONSULT PATIENT SEEN AND SKIN INTEGRITY ASSESSMENT DONE. PATIENT PRESENTS WITH INTACT SACRAL REGION WITH BLANCHABLE REDNESS, LEFT KNEE DRY ABRASION, BILATERAL INNER BUTTOCK FOLD EXCORIATIONS ALL POA. THERE IS ALSO NOTED RIGHT UPPER CHEST BRUISING. PATIENT IS S/P MULTIPLE CODE BLUE WHILE IN ICU. PATIENT WITH CHUCK AT 10, RECOMMEND Z GUARD NEEDED FOR MILD BUTTOCKS EXCORIATIONS. RECOMMEND CONTINUE Q 2 HOUR TURNING, BILATERAL HEEL FLOATING. [facility]. ALL SKIN MANAGEMENT AND PREVENTION MEASURES NOTED TO BE IN PLACE. ALL DISCUSSED WITH NURSING STAFF AT THE BEDSIDE. MD IN AGREEMENT WITH PLAN OF CARE. PATIENT NOTED TO HAVE MULTIPLE CO-MORBIDITIES AT THIS TIME. Addendum: 03/04/17 at 0959 by BISHNU BURGOS Amended: Links added. Addendum: 03/04/17 at 1003 by BISHNU BURGOS WOUND RN ADDENDUM PATIENT ALSO PRESENTS WITH RIGHT MEDIAL ANKLE SCARRING WHICH IS NOTED TO BE POA.
[2017-03-04] MEDS ORDERED: Z GUARD REMEDY 2 OZ OINT TP PRN (10:00)
[2017-03-04] MEDS: Z GUARD REMEDY 2 OZ OINT TP SCH (10:29)
[2017-03-04] MEDS ORDERED: DEXTROSE 50%-WATER 50 ML DISP.SYRIN IV PRN (11:00)
--- NOTE | 2017-03-04 11:30 | NUR ---
ICU/RN: DISCUSSED WITH THAT PT IS DIABETIC WITH NOT SLIDING SCALE. TLO ORDERS RECEIVED FOR NPO SLIDING SCALE Q 6 HORUS WITH MILD SCALE. WILL FOLLOW THROUGH.
[2017-03-04] MEDS: BLOOD SUGAR DIAGNOSTIC 1 EACH STRIP IN SCH ×3 (12:23→23:27)
[2017-03-04] MEDS: INSULIN REGULAR, HUMAN 100 UNIT/ML 3 ML VIAL SQ PRN ×3 (12:41→23:29)
[2017-03-04] MEDS ORDERED: NEUTRA PHOS 1 POWD.PACKET NG ONE (15:30)
[2017-03-04] MEDS: LACTOBACILLUS RHAMNOSUS GG 1 EACH CAP.SPRINK PO SCH (16:07)
[2017-03-04] MEDS: HEPARIN INFUSION/D5W 500 ML IV PRN (17:15)
[2017-03-04] MEDS: NOREPINEPHRINE 8 MG in IV D5W 500 ML IV PRN (17:17)
--- NOTE | 2017-03-04 18:00 | NUR ---
PATIENT RECEIVED ORALLY INTUBATED WITH 7.5 ETT TAPED AT 23 CM VIA ANCHOR FAST ON PB 840 VENT. VENT SETTINGS AND CHANGES PER MD ORDER. ALARMS VERIFIED AND AUDIBLE. VENT PLUGGED INTO RED OUTLET. SUCTIONED AND LAVAGED SMALL-MODERATE AMOUNT OF THICK CLEAR/BLOOD TINGED SECRETIONS. AMBU BAG AT [facility].
--- NOTE | 2017-03-04 18:58 | NUR ---
ICU/RN ENDING NOTES,AM REPORT WILL BE ENDORSED TO NIGHT NURSE. PT ONLY RESPONDS TO PAINFUL STIMULI. PT OFF SEDATION SINCE AM. LOW DOSE LEVO INFUSING FOR BP SUPPORT. AT BEDSIDE. HEPARIN INFUSING PER PROTOCOL. NO S/S OF BLEEDING NOTED. ALL NEEDS ATTENDED TO, SAFETY MEASURES TAKEN, BED IN LOW POSITION, SIDE RIALS UP, CALL LIGHT WITHIN REACH. STILL WAITING FOR TO COME SEE PT FOR POSSIBLE CHEST TUBE. VSS. WILL ENDORSE FOR MELANIE.
--- NOTE | 2017-03-04 19:30 | NUR ---
RN INITIAL NOTES RECEIVED THE PT OBTUNDED ON BED, NO SEDATION, ONLY AROUSABLE TO PAINFUL STIMULI. INTUBATED AND ON VENT WITH SETTINGS AC 14, TV 600, 50% FIO2, P5, SATURATING @ 100% WITH NO S/S OF RESP DISTRESS. CURRENTLY AFIB ON THE MONITOR, HR 90-110'S; CURRENTLY ON LEVO DRIP @ 5MCG/MIN FOR BP SUPPORT. HEPARIN DRIP RUNNING @ 750 UNITS/HR. PALMER CATH INTACT. LEFT UPPER ARM MIDLINE AND RIGHT UPPER ARM PICC FLUSHED AND PATENT, NO S/S OF INFILTRATION/INFECTION, DRESSINGS CDI. BED LOW AND LOCKED, SIDERAILS UP, BILATERAL SOFT WRIST RESTRAINTS IN PLACE FOR SAFETY, BED ALARM ON. WILL MONITOR Addendum: 03/04/17 at 2001 by ARTHUR PARSONS RN DISREGARD NOTED HEART RHYTHM ABOVE. CORRECT RHYTHM IS SR/ST WITH FIRST DEGREE HB, HR 90-110'S. ALSO, ETT IS 7.5@LIP
[2017-03-04] MEDS: ATORVASTATIN 40 MG TABLET PO SCH (22:01)
[2017-03-05] VITALS (104 sets, daily range): BP systolic 87–134; BP diastolic 49–88
[2017-03-05] MEDS: PIPERACILLIN /TAZOBACTAM 2.25 G in IV D5W 50 ML IV SCH ×3 (04:25→21:17)
[2017-03-05 04:42] LABS: BASOPHILS % (AUTO) 0.4 % (0.0-2.0); EOSINOPHILS # (AUTO) 0.3 /CMM (0.0-0.7); EOSINOPHILS % (AUTO) 2.1 % (0.0-6.0); HEMATOCRIT 22 % (39-51); HEMOGLOBIN 7.4 g/dL (13.5-17.5); LYMPHOCYTES % (AUTO) 8.1 % (20.0-44.0); MEAN CORPUSCULAR HEMOGLOBIN 32 PG (26.0-33.0); MEAN CORPUSCULAR HGB CONC 34 g/dl (31.0-36.0); MEAN CORPUSCULAR VOLUME 96 fL (80-96); MONOCYTES # (AUTO) 0.7 /CMM (0.1-1.30); MONOCYTES % (AUTO) 5.5 % (2.0-12.0); NEUTROPHILS % (AUTO) 83.9 % (43.0-81.0); PLATELET COUNT (AUTO) 150 /CMM (150-450); RDW COEFFICIENT OF VARIATION 14.9 (11.5-15.0); RED BLOOD CELL COUNT(AUTO) 2.31 MIL/uL (4.5-6.0); WHITE BLOOD COUNT (AUTO) 11.9 K/uL (4.3-11.0)
[2017-03-05 05:04] LABS: ALANINE AMINOTRANSFERASE 211 U/L (12-78); ALKALINE PHOSPHATASE 99 U/L (46-116); ASPARTATE AMINOTRANSFERASE 70 U/L (15-37); BILIRUBIN,TOTAL 0.8 mg/dL (0.2-1.0); CALCIUM, SERUM 7.7 mg/dL (8.5-10.1); CARBON DIOXIDE 22 mmol/L (21-32); CHLORIDE 109 mmol/L (98-107); CREATININE 3.1 mg/dL (0.6-1.3); GLUCOSE 186 mg/dL (74-106); MAGNESIUM 1.6 mg/dL (1.8-2.4); SODIUM SERUM 142 mmol/L (136-145); TOTAL PROTEIN, SERUM 5.3 g/dL (6.4-8.2); UREA NITROGEN, BLOOD 52 mg/dL (7-18)
[2017-03-05 05:08] LABS: TROPONIN I 1.224 ng/mL (0.00-0.056)
[2017-03-05] MEDS: BLOOD SUGAR DIAGNOSTIC 1 EACH STRIP IN SCH ×3 (05:10→17:20)
[2017-03-05] MEDS: INSULIN REGULAR, HUMAN 100 UNIT/ML 3 ML VIAL SQ PRN ×3 (05:11→17:21)
--- NOTE | 2017-03-05 06:00 | NUR ---
RN NOTES TALKED TO DR WILSON ON THE PHONE. UPDATED HIM OF CURRENT PATIENT CONDITION. DR WILSON REQUESTED FOR DR NAVARRO'S OFFICE TO BE CALLED TO CHECK DR NAVARRO'S AVAILABILITY FOR CONSULTATION
[2017-03-05] MEDS ORDERED: Magnesium 1GM/D5W 100ML PREMIX 100 ML IV ONE (06:12)
[2017-03-05] MEDS: Magnesium 1GM/D5W 100ML PREMIX 100 ML IV SCH ×2 (06:16→08:14)
--- NOTE | 2017-03-05 06:25 | NUR ---
RN CLOSING NOTES PT REMAINS STABLE OF THE MOMENT. ALL DUE MEDS GIVEN, AM CARE PROVIDED. WILL ENDORSE CONTINUITY OF CARE TO AM RN
--- NOTE | 2017-03-05 06:45 | NUR ---
RN NOTES CALLED DR NAVARRO'S OFFICE AND LEFT A MESSAGE FOR HIS AVAILABILITY FOR CONSULTATION. WILL ENDORSE TO AM JOSE
--- NOTE | 2017-03-05 07:47 | NUR ---
RT PATIENT REC'D ORALLY INTUBATED WITH A 7.5 ETT SECURED VIA ANCHOR FAST AT 23CM MID LIP. VENT SETTINGS SET BY MD RODRÍGUEZ. VENT ALARMS CHECKED + AUDIBLE. CUFF PRESSURE CHECKED LUMBER BUYER. SX'D WITH REBEKA AMT PALE SEMITHICK SECRETIONS. B/S DIM COARSE. AMBU BAG AT [facility]. PATIENT SEDATED AND APPEARS COMFORTABLE AT THIS TIME. Addendum: 03/05/17 at 1041 by ISABEL POWELL RT Amended: Links added.
[2017-03-05] MEDS: Z GUARD REMEDY 2 OZ OINT TP SCH (08:14)
[2017-03-05] MEDS: LACTOBACILLUS RHAMNOSUS GG 1 EACH CAP.SPRINK PO SCH ×2 (08:14→17:20)
[2017-03-05] MEDS: LEVOTHYROXINE SODIUM 50 MCG TABLET PO SCH (08:14)
[2017-03-05] MEDS: ASPIRIN EC 81 MG TABLET.DR PO SCH (08:14)
--- NOTE | 2017-03-05 08:54 | NUR ---
IMAGING ENGINEER NOTE 0720: Received patient obtunded, able to respond to pain but does not follow commands. With ETT to vent, tolerated settings at this time. Noted with thin whitmore secretions when suctioned. With OGT intact, noted with gurgling sound in the gastric region during auscultation. Adorno cath intact, noted with clear yellow urine drained to BSD. FRANCOIS PICC intact, Heparin @ 750 units and Levophed @ 3mcg infusing, Mg ongoing for replacing 1.6. SR-ST 100's on the monitor. 0830: Spoke with Lexi via phone and given update, obtained consent for blood transfusion, witnessed by CN. 0840: S/E by Dr. Crane, no new order at this time. 0850: S/E by Dr. Mckee, awaiting Dr. Burgos's consult.
--- NOTE | 2017-03-05 10:26 | NUR ---
SAMPLE CLERK NOTE Patient back from CT head, stable. No any significant changes noted. Still on 3mcg Levo, blood #1 of 1 unit PRBC ongoing, no any adverse reactions noted. Heparin drip infusing as ordered.
[2017-03-05] MEDS: NOREPINEPHRINE 8 MG in IV D5W 500 ML IV PRN (11:28)
[2017-03-05 11:30] LABS: ABG BASE EXCESS -4.1 mmol/L; ABG OXYGEN SATURATION 97.9 % (92.0-98.5); ABG PCO2 26.1 mmHg (35.0-45.0); ABG PH 7.473 (7.350-7.450); ABG PO2 144.2 mmHg (75.0-100.0); COHb 0.1 % (0.5-1.5); MetHb 1.2 % (0.0-1.5); O2Hb 96.6 % (94.0-97.0); SITE, ABG Right Radial
--- NOTE | 2017-03-05 12:11 | NUR ---
GAS LINE SERVICER NOTE Done with blood transfusion, no any adverse reactions. at bedside, updated re: patient's status, aware for the plan of care.
[2017-03-05] MEDS: GLYTROL 1,000 ML BAG GT PRN (16:45)
[2017-03-05] MEDS: HYDROMORPHONE INJ 2 MG/ML DISP.SYRIN IV PRN (17:20)
[2017-03-05] MEDS: VANCOMYCIN 1 GM in IV D5W 250 ML IV SCH (17:50)
--- NOTE | 2017-03-05 17:50 | NUR ---
SUPERINTENDENT QUARRY NOTE 1550: S/E by Dr. Burgos, said no chest tube for now and will F/U again tomorrow CXR, at bedside aware, verbalized understanding. 4055: [facility] said to [facility] 1[facility] for now and they will change dosing.
[2017-03-05] MEDS: HEPARIN INFUSION/D5W 500 ML IV PRN (18:21)
--- NOTE | 2017-03-05 19:30 | NUR ---
EXECUTIVE ASSISTANT INITIAL NOTE RECEIVED REPORT FROM BEE GARCIA. PT IN BED, OBTUNDED. ON VENT AC 14, TV 600, FIO2 40%, NO PEEP. TOLERATING CURRENT VENT SETTINGS. LUNG SOUNDS CLEAR. BOWEL SOUNDS HYPOACTIVE. PULSES PRESENT. PALMER INTACT AND DRAINING CLEAR URINE. IV PATENT AND INTACT. BP CURRENTLY 100 WITH 2MCG OF LEVOPHED. OG TUBE WITH GLYTROL @ 30ML/HR 10CC RESIDUAL NOTED. REPOSITIONED FOR COMFORT. BED IN LOW LOCKED POSITION. CALL LIGHT WITHIN REACH. WILL CONTINUE TO MONITOR.
[2017-03-05] MEDS: ATORVASTATIN 40 MG TABLET PO SCH (21:17)
--- NOTE | 2017-03-05 23:45 | NUR ---
SENIOR ORACLE DATABASE DEVELOPER PT ON VENT, TOLERATING VENT SETTINGS. OBTUNDED. ON 2MCG OF LEVOPHED FOR BP CONTROL. HEPARIN REMAINS AT 750, NEXT PTT AT 0500. ORAL CARE PROVIDED. BED IN LOW LOCKED POSITION. WILL CONTINUE TO MONITOR.
[2017-03-06] VITALS (101 sets, daily range): BP systolic 88–123; BP diastolic 51–82
[2017-03-06] MEDS: BLOOD SUGAR DIAGNOSTIC 1 EACH STRIP IN SCH ×4 (00:31→18:04)
[2017-03-06] MEDS: INSULIN REGULAR, HUMAN 100 UNIT/ML 3 ML VIAL SQ PRN ×4 (00:33→18:06)
[2017-03-06 04:52] LABS: EOSINOPHILS # (AUTO) 0.3 /CMM (0.0-0.7); EOSINOPHILS % (AUTO) 2.5 % (0.0-6.0); HEMATOCRIT 24 % (39-51); HEMOGLOBIN 8.2 g/dL (13.5-17.5); LYMPHOCYTES # (AUTO) 1.2 /CMM (0.8-4.8); LYMPHOCYTES % (AUTO) 11.3 % (20.0-44.0); MEAN CORPUSCULAR HEMOGLOBIN 32 PG (26.0-33.0); MEAN CORPUSCULAR HGB CONC 34 g/dl (31.0-36.0); MEAN CORPUSCULAR VOLUME 93 fL (80-96); MONOCYTES # (AUTO) 0.7 /CMM (0.1-1.30); MONOCYTES % (AUTO) 6.5 % (2.0-12.0); NEUTROPHILS # (AUTO) 8.8 /CMM (1.8-8.9); NEUTROPHILS % (AUTO) 79.7 % (43.0-81.0); PLATELET COUNT (AUTO) 132 /CMM (150-450); RED BLOOD CELL COUNT(AUTO) 2.62 MIL/uL (4.5-6.0)
[2017-03-06 05:06] LABS: CALCIUM, SERUM 7.4 mg/dL (8.5-10.1); CARBON DIOXIDE 20 mmol/L (21-32); CHLORIDE 107 mmol/L (98-107); GLUCOSE 220 mg/dL (74-106); PHOSPHORUS 4.2 mg/dL (2.5-4.9); POTASSIUM 4.1 mmol/L (3.5-5.1); SODIUM SERUM 140 mmol/L (136-145); UREA NITROGEN, BLOOD 51 mg/dL (7-18)
[2017-03-06] MEDS: PIPERACILLIN /TAZOBACTAM 2.25 G in IV D5W 50 ML IV SCH ×3 (05:24→21:01)
--- NOTE | 2017-03-06 06:17 | NUR ---
IMAGING SERVICES DIRECTOR PTT 58. PER PROTOCOL NO CHANGE ON HEPARIN DRIP. NEXT PTT 03/07. WILL ENDORSE TO ONCOMING SHIFT.
[2017-03-06] MEDS: LACTOBACILLUS RHAMNOSUS GG 1 EACH CAP.SPRINK PO SCH ×2 (08:02→17:44)
[2017-03-06] MEDS: Z GUARD REMEDY 2 OZ OINT TP SCH (08:02)
[2017-03-06] MEDS: LEVOTHYROXINE SODIUM 50 MCG TABLET PO SCH (08:02)
[2017-03-06] MEDS: ASPIRIN EC 81 MG TABLET.DR PO SCH (08:03)
--- NOTE | 2017-03-06 09:57 | NUR ---
HEAD START DIRECTOR NOTE 0720: Received patient obtunded, responds to painful stimuli only. With ETT to vent, tolerated settings at this time. With FRANCOIS PICC, on Levo @ 2mcg, SBP >100's. With Heparin drip infusing at 750 units/hr. OGT intact, feeding tolerated, no residuals. Kept HOB elevated. Adorno cath intact, noted with minimal to moderate amount of clear arie colored urine drained to BSD. ERIN midline intact. 0840: S/E by Dr. Crane, at bedside, discussed re: the POC. 0910: S/E by Dr. Lizarraga, no new order at this time. 0950: CXR done, seen by Dr. Mckee, with order to repeat at 1300. spoke with at bedside, aware for patient's CXR and for repeat order.
[2017-03-06] MEDS: NOREPINEPHRINE 8 MG in IV D5W 500 ML IV PRN ×2 (10:40→17:43)
[2017-03-06] MEDS: HEPARIN INFUSION/D5W 500 ML IV PRN (17:29)
[2017-03-06] MEDS: GLYTROL 1,000 ML BAG GT PRN (17:43)
--- NOTE | 2017-03-06 18:40 | NUR ---
ROUTING EQUIPMENT TENDER NOTE 1400: Dr. Mckee aware for the F/U CXR, no changes. MD said no CT for now and will F/U with CXR tomorrow. at bedside, made aware re: the POC, verbalized understanding 1829: No any significant changes noted at this time. Kept clean, warm and dry. Needs attended. at bedside, kept updated re: the POC.
--- NOTE | 2017-03-06 20:00 | NUR ---
Received patient obtunded responsive to painful stimuli.Continued on same on vent settings on AC mode.Well tolerated.Clear breath sounds bilaterally on auscultation.Suction small amount white secretions and oral care done.Per monitor shows SR with 1st degree AVB .Levophed drip infusing @ 1 mcg/min for BP support and will titrate accordingly.GT feeding infusing at 30 ml/hr residual 10 ml.Abdomen soft BS active.No distress noted.FC to gravity draining cloudy yellow urine. Patient was turned and repositioned and call light at BS within easy reach.
--- NOTE | 2017-03-06 20:45 | NUR ---
Patient visiting and updated of patient status.All questions answered.
[2017-03-06] MEDS: HYDROMORPHONE INJ 2 MG/ML DISP.SYRIN IV PRN (20:56)
[2017-03-06] MEDS: ATORVASTATIN 40 MG TABLET PO SCH (21:51)
--- NOTE | 2017-03-06 22:00 | NUR ---
Pain medication administered as PRN .
[2017-03-07] VITALS (108 sets, daily range): BP systolic 85–144; BP diastolic 45–113
--- NOTE | 2017-03-07 | NUR ---
Patient resting no acute distress noted.VS stable.Heparin drip infusing at same rate 750 unit/hr Will follow up PTT at 0500 am.Levophed drip titrated accordingly.Turned and repositioned.
[2017-03-07] MEDS: INSULIN REGULAR, HUMAN 100 UNIT/ML 3 ML VIAL SQ PRN ×5 (00:01→23:45)
[2017-03-07] MEDS: BLOOD SUGAR DIAGNOSTIC 1 EACH STRIP IN SCH ×5 (00:01→23:43)
--- NOTE | 2017-03-07 02:00 | NUR ---
0400 Patient status unchanged.VS stable.GT feeding infusing at well tolerated.
[2017-03-07 04:59] LABS: EOSINOPHILS # (AUTO) 0.3 /CMM (0.0-0.7); EOSINOPHILS % (AUTO) 3.3 % (0.0-6.0); HEMATOCRIT 22 % (39-51); HEMOGLOBIN 7.5 g/dL (13.5-17.5); LYMPHOCYTES # (AUTO) 0.7 /CMM (0.8-4.8); LYMPHOCYTES % (AUTO) 7.5 % (20.0-44.0); MEAN CORPUSCULAR HEMOGLOBIN 32 PG (26.0-33.0); MEAN CORPUSCULAR HGB CONC 34 g/dl (31.0-36.0); MEAN CORPUSCULAR VOLUME 93 fL (80-96); MONOCYTES # (AUTO) 0.8 /CMM (0.1-1.30); MONOCYTES % (AUTO) 9.3 % (2.0-12.0); NEUTROPHILS # (AUTO) 7.1 /CMM (1.8-8.9); NEUTROPHILS % (AUTO) 79.9 % (43.0-81.0); PLATELET COUNT (AUTO) 119 /CMM (150-450); RDW COEFFICIENT OF VARIATION 15.8 (11.5-15.0); RED BLOOD CELL COUNT(AUTO) 2.37 MIL/uL (4.5-6.0); WHITE BLOOD COUNT (AUTO) 8.9 K/uL (4.3-11.0)
[2017-03-07] MEDS: PIPERACILLIN /TAZOBACTAM 2.25 G in IV D5W 50 ML IV SCH ×3 (05:02→21:19)
[2017-03-07 05:03] LABS: CALCIUM, SERUM 7.7 mg/dL (8.5-10.1); CARBON DIOXIDE 19 mmol/L (21-32); CHLORIDE 106 mmol/L (98-107); CREATININE 2.9 mg/dL (0.6-1.3); GLUCOSE 228 mg/dL (74-106); PHOSPHORUS 4.4 mg/dL (2.5-4.9); POTASSIUM 4.2 mmol/L (3.5-5.1); SODIUM SERUM 139 mmol/L (136-145); UREA NITROGEN, BLOOD 54 mg/dL (7-18)
[2017-03-07 05:51] LABS: EOSINOPHILS % (MANUAL) 1 % (0-4); LYMPHOCYTES % (MANUAL) 4 % (16-48); MONOCYTES % (MANUAL) 11 % (0-11.0); NEUTROPHILS % (MANUAL) 84 (42-76)
--- NOTE | 2017-03-07 05:56 | NUR ---
called and inquire about patient status.Updated and orders received. When radiology called for this morning's CXR result and pneumothorax is larger to call him.But if result is unchanged it can wait till he come this morning.
[2017-03-07] MEDS ORDERED: VANCOMYCIN 1 GM in IV D5W 250 ML IV SCH (06:00)
--- NOTE | 2017-03-07 06:15 | NUR ---
Patient resting.No distress noted.VS stable.Kept clean and dry.Turned and repositioned.Oral care and secretions suctioned.BS monitored and coverage given per insulin sliding scale.All needs met.
--- NOTE | 2017-03-07 06:57 | NUR ---
AM labs resulted PTT= 54 seconds.Per Weight-Based Heparin Dosing Protocol non ACS no change on Heparin drip rate.
--- NOTE | 2017-03-07 07:00 | NUR ---
icu initial note received report from anastacia, pt was received, obtunded, responds to pain stimuli only, unable to follow commands, unable to track or move extremities, pt is intubated, ett 7.09/10 lipline, ac 14 tv 600 fio2 40% peep 0, sating 100%, no s/s of resp.distress or sob noted at this time, pt is on bedside monitor showing sr w/ 1 degree av block 70's, no s.s of chest pain or discomfort at this time, pt has ogt, intact/patent, running glytrol @ 30ml/hr, tolerating well, no residuals noted at this time, pt has edna midline, c/d/i/patent, flushing well, no blood return noted, running ns @ tko @ 5ml/hr, levo @ 1mcg/min, yazmin picc, c/d/i/patent, flushing well, running heparin @750 units/hr, aptt is 54, no changes, pt is noted with multiple skin issues, all safety measures in place at all times, call light within easy reach, will monitor pt closely for changes Addendum: 03/07/17 at 1056 by DANIELLE PONCE RN f/c draining very minimal urine to gravity
--- NOTE | 2017-03-07 08:30 | NUR ---
icu note made rounds, aware of all labs and test results, no new orders at this time.
[2017-03-07] MEDS: ASPIRIN EC 81 MG TABLET.DR PO SCH (08:59)
[2017-03-07] MEDS: LEVOTHYROXINE SODIUM 50 MCG TABLET PO SCH (08:59)
[2017-03-07] MEDS: LACTOBACILLUS RHAMNOSUS GG 1 EACH CAP.SPRINK PO SCH ×2 (08:59→17:48)
[2017-03-07] MEDS: Z GUARD REMEDY 2 OZ OINT TP SCH (08:59)
--- NOTE | 2017-03-07 09:00 | NUR ---
icu note levi at bedside, updated on pt condition, all questions and concerns answered
--- NOTE | 2017-03-07 09:42 | NUR ---
icu note sana hassan and at bedside, answering all 's questions at bedside.
--- NOTE | 2017-03-07 10:30 | NUR ---
icu note holding feeding, pt will be taken to ct later
[2017-03-07] MEDS: HEPARIN INFUSION/D5W 500 ML IV PRN (11:47)
[2017-03-07] MEDS: FAMOTIDINE/PF INJ 20 MG/2 ML VIAL IV SCH (11:47)
--- NOTE | 2017-03-07 12:30 | NUR ---
icu note information technology instructor at bedside
--- NOTE | 2017-03-07 13:00 | NUR ---
icu note radiology not ready for pt
--- NOTE | 2017-03-07 15:03 | NUR ---
icu note 1 unit of prbc infusing at this time, vss
--- NOTE | 2017-03-07 17:31 | NUR ---
ICU NOTE TRANSFUSED 1 UNIT PRBC, VSS
--- NOTE | 2017-03-07 17:32 | NUR ---
ICU NOTE OB STOOL COLLECTED, LAB CALLED
[2017-03-07] MEDS: NOREPINEPHRINE 8 MG in IV D5W 500 ML IV PRN (17:51)
--- NOTE | 2017-03-07 18:00 | NUR ---
icu note raodiology not ready for pt
[2017-03-07] MEDS: IV NS 0.9% 250 ML IV PRN (18:59)
--- NOTE | 2017-03-07 20:00 | NUR ---
Received patient obtunded.Remains intubated and vented on same settings.Well tolerated saturation 100%.Noted some redness to left eye.Tele monitor reading SR with 1st degree AVB. VS stable.Levophed drip off this time.OGT feeding off at this time pending CT Head.OGT Placement verified intact,patent and clamped.Abdomen soft.BS active.FC to gravity drainage with cloudy urine with some sediments.Heparin drip infusing via FRANCOIS PICC Line and site intact.Multiple skin issues.Skin care protocol implemented.Left hand weeping dressing changed.Turned and repositioned.Call light at BS within easy reach.Continue monitoring.
--- NOTE | 2017-03-07 20:25 | NUR ---
Patient visiting updated of patient status.Verbalized concern about patient with redness to left eye. Dr.Simona Claynotified with orders received and carried out. made aware of MD's order.Verbalized understanding.
--- NOTE | 2017-03-07 20:30 | NUR ---
Patient BP unstable.Levophed drip restarted at 1 mcg/min via ERIN Midline infusing well.Site intact.Continue monitoring.
[2017-03-07] MEDS ORDERED: FAMOTIDINE/PF INJ 20 MG/2 ML VIAL IV SCH (21:00)
[2017-03-07] MEDS: ERYTHROMYCIN BASE OPHTH 3.5 GM TUBE EACHEYE SCH (21:20)
[2017-03-07] MEDS: HYDROMORPHONE INJ 2 MG/ML DISP.SYRIN IV PRN (21:29)
--- NOTE | 2017-03-07 21:29 | NUR ---
Patient suddenly become tachycardic 112-128.BP elevated 140/100,141/113,142/96 patient grimacing. Pain medication administered as PRN.Patient at bedside aware of patient VS.All questions answered. Continue monitoring.Levophed drip on hold.
[2017-03-07] MEDS: ATORVASTATIN 40 MG TABLET PO SCH (21:42)
[2017-03-07] MEDS: GLYTROL 1,000 ML BAG GT PRN (21:56)
--- NOTE | 2017-03-07 22:00 | NUR ---
Follow up call made to computer aided design technician when will they do CT HEAD for this patient.He said he is busy with code Stroke in ED at this time.Patient hemodynamically unstable with Levophed drip infusing. OGT feeding Glytrol started.HOB elevated.
[2017-03-08] VITALS (84 sets, daily range): BP systolic 75–143; BP diastolic 32–107
--- NOTE | 2017-03-08 04:00 | NUR ---
Patient resting in no distress.VS stable.Bed bath rendered and complete linens changed. Turned and repositioned.Secretions suctioned and oral care done.
[2017-03-08 05:00] LABS: BASOPHILS % (AUTO) 0.1 % (0.0-2.0); EOSINOPHILS # (AUTO) 0.5 /CMM (0.0-0.7); EOSINOPHILS % (AUTO) 4.6 % (0.0-6.0); HEMATOCRIT 28 % (39-51); HEMOGLOBIN 9.6 g/dL (13.5-17.5); LYMPHOCYTES # (AUTO) 0.9 /CMM (0.8-4.8); LYMPHOCYTES % (AUTO) 9.4 % (20.0-44.0); MEAN CORPUSCULAR HEMOGLOBIN 32 PG (26.0-33.0); MEAN CORPUSCULAR HGB CONC 34 g/dl (31.0-36.0); MEAN CORPUSCULAR VOLUME 93 fL (80-96); MONOCYTES # (AUTO) 0.9 /CMM (0.1-1.30); MONOCYTES % (AUTO) 8.8 % (2.0-12.0); NEUTROPHILS # (AUTO) 7.8 /CMM (1.8-8.9); NEUTROPHILS % (AUTO) 77.1 % (43.0-81.0); PLATELET COUNT (AUTO) 129 /CMM (150-450); RED BLOOD CELL COUNT(AUTO) 2.99 MIL/uL (4.5-6.0); WHITE BLOOD COUNT (AUTO) 10.1 K/uL (4.3-11.0)
[2017-03-08] MEDS: PIPERACILLIN /TAZOBACTAM 2.25 G in IV D5W 50 ML IV SCH ×3 (05:02→21:57)
[2017-03-08 05:12] LABS: INR 0.98 (0.87-1.13); PROTHROMBIN TIME 10.2 SECS (9.5-12.7)
[2017-03-08 05:18] LABS: CALCIUM, SERUM 7.8 mg/dL (8.5-10.1); CARBON DIOXIDE 18 mmol/L (21-32); CHLORIDE 105 mmol/L (98-107); CREATININE 2.8 mg/dL (0.6-1.3); GLUCOSE 187 mg/dL (74-106); POTASSIUM 4.7 mmol/L (3.5-5.1); SODIUM SERUM 137 mmol/L (136-145); UREA NITROGEN, BLOOD 54 mg/dL (7-18)
[2017-03-08] MEDS: BLOOD SUGAR DIAGNOSTIC 1 EACH STRIP IN SCH ×3 (05:42→17:53)
[2017-03-08] MEDS: INSULIN REGULAR, HUMAN 100 UNIT/ML 3 ML VIAL SQ PRN ×3 (05:43→17:55)
[2017-03-08] MEDS ORDERED: HEPARIN SODIUM, PORCINE 5000 UNITS/1 ML VIAL ONE (06:25)
--- NOTE | 2017-03-08 06:36 | NUR ---
Patient AM labs resulted.PTT 44 seconds.Per Weight Based Heparin protocol dosing non ACS Heparin bolus 3360 units iv given and Heparin drip increased by 2 units/kg/h=168 units/hr. Current Heparin drip infusing at 918 units/hr.Needs PTT in 6 HRS.Will endorse to incoming AM shift RN.
--- NOTE | 2017-03-08 07:55 | NUR ---
CREATIVE SERVICES PRODUCER: pt.is obtunded, reactive by pain: grimacing, can open eyes for seconds without tracking, pupils reaction is sluggish, flat extremities, rest, no laboring, SR, Levophed gtt 1mcg now, continue titrate/very sensitive with doses by report, O2 sat., OGTF residual WNL, on Heparin gtt, last adjustment on 0600, next PTT at 12.00, bloody secretion with suction/will s/w , R.arm PICC: two lumen are occluded, no blood return, will evaluate on CXR, Heparin gtt 918 units/hr now, last PTT 44, is in room, updated with all above, see new orders
[2017-03-08] MEDS: LEVOTHYROXINE SODIUM 50 MCG TABLET PO SCH (07:56)
--- NOTE | 2017-03-08 08:30 | NUR ---
LINER MAN: pt. is in room, detailed updated with pt.current condition, orders, VS, gtts, I/O, OGTF, MD visits, POC
[2017-03-08] MEDS: Z GUARD REMEDY 2 OZ OINT TP SCH (09:07)
[2017-03-08] MEDS: LACTOBACILLUS RHAMNOSUS GG 1 EACH CAP.SPRINK PO SCH ×2 (09:07→16:34)
[2017-03-08] MEDS: ASPIRIN EC 81 MG TABLET.DR PO SCH (09:07)
[2017-03-08] MEDS: FAMOTIDINE/PF INJ 20 MG/2 ML VIAL IV SCH (09:07)
[2017-03-08] MEDS: ERYTHROMYCIN BASE OPHTH 3.5 GM TUBE EACHEYE SCH ×3 (09:43→16:33)
--- NOTE | 2017-03-08 09:45 | NUR ---
PRIVACY ATTORNEY: PICC tip position at clavicle level with some kick on CXR 03/07, two lumens are occluded, JOSE Romano evaluated PICC, pt.is getting Heparin, Levophed gtts, Antxs, had blood transfusion, PICC needs to be replaced, notified and ordered new PICC placement
--- NOTE | 2017-03-08 13:14 | NUR ---
INCLUSION SPECIAL EDUCATOR: PTT 94, hold Heparin gtt for 1hr and decrease drip by 3 units/hr per protocol, recheck PTT at 18.00
--- NOTE | 2017-03-08 16:00 | NUR ---
REAL ESTATE DEVELOPER: is in room, notified re pt.current neuro status, history, VS, Levophed is off, Heparin gtt, B legs DVT+, O2 sat., suction, detailed spoke with pt.family, got DNR decision, see new orders
--- NOTE | 2017-03-08 17:04 | NUR ---
FOR CT HEAD WO TO BE DONE AFTER 1999, NEEDS RT PER RON GARCIA
--- NOTE | 2017-03-08 17:15 | NUR ---
MANAGER DISTRIBUTION: head CT w/o contrast order is still active, Pressor is off now, no acute bleeding event, pt. is rest now, notified radiology department and updated with pt.current condition, RD is busy now with ER, CT scheduled at 20.00, charge nurse is aware and agree
--- NOTE | 2017-03-08 17:38 | NUR ---
GRINDING WHEEL OPERATOR: DT evaluated pt., ordered: increase OGTF rate/goal 70 ml/h
--- NOTE | 2017-03-08 18:15 | NUR ---
ELECTROMECHANIC: called to lab: order for PTT at 18.00 is active
--- NOTE | 2017-03-08 19:15 | NUR ---
PRODUCT SAFETY COORDINATOR: RECEIVED PTT RESULT OF 49. PER HEPARIN DRIP PROTOCOL FOR NON-ACS, NO CHANGE. WILL OBTAIN ORDER TO REPEAT PTT IN AM. NO MELANIE AT THIS TIME. PT REMAINED OBTUNDED AND WITHDRAWS TO LIGHT PAIN. TOLERATING VENT SETTINGS ORDERED WT NO ACUTE DISTRESS. NO EVIDENCE OF DISCOMFORT. VS WITHIN HIS BASELINE.
[2017-03-08] MEDS: HEPARIN INFUSION/D5W 500 ML IV PRN (19:46)
--- NOTE | 2017-03-08 20:23 | NUR ---
POLYMER SCIENTIST: PT TAKEN DOWN TO CT SCAN OF HEAD WITHOUT CONTRAST PER ACLS PROTOCOL.
--- NOTE | 2017-03-08 20:45 | NUR ---
SWATCHER: CAME BACK FROM CT SCAN WITHOUT INCIDENT. PROCEDURE TOLERATED WELL.
[2017-03-08] MEDS: GLYTROL 1,000 ML BAG GT PRN (21:58)
[2017-03-08] MEDS: ATORVASTATIN 40 MG TABLET PO SCH (21:58)
[2017-03-08] MEDS: NOREPINEPHRINE 8 MG in IV D5W 500 ML IV PRN (22:43)
[2017-03-09] VITALS (110 sets, daily range): BP systolic 75–132; BP diastolic 33–93
[2017-03-09] MEDS: IV NS 0.9% 250 ML IV PRN ×2 (00:09→23:42)
[2017-03-09] MEDS: BLOOD SUGAR DIAGNOSTIC 1 EACH STRIP IN SCH ×5 (00:25→23:42)
[2017-03-09] MEDS: INSULIN REGULAR, HUMAN 100 UNIT/ML 3 ML VIAL SQ PRN ×5 (00:27→23:45)
[2017-03-09 05:07] LABS: BASOPHILS % (AUTO) 0.1 % (0.0-2.0); EOSINOPHILS # (AUTO) 0.1 /CMM (0.0-0.7); EOSINOPHILS % (AUTO) 1.4 % (0.0-6.0); HEMATOCRIT 26 % (39-51); HEMOGLOBIN 8.7 g/dL (13.5-17.5); LYMPHOCYTES # (AUTO) 0.7 /CMM (0.8-4.8); LYMPHOCYTES % (AUTO) 8.1 % (20.0-44.0); MEAN CORPUSCULAR HEMOGLOBIN 31 PG (26.0-33.0); MEAN CORPUSCULAR HGB CONC 33 g/dl (31.0-36.0); MEAN CORPUSCULAR VOLUME 94 fL (80-96); MONOCYTES # (AUTO) 0.9 /CMM (0.1-1.30); MONOCYTES % (AUTO) 9.6 % (2.0-12.0); NEUTROPHILS # (AUTO) 7.4 /CMM (1.8-8.9); NEUTROPHILS % (AUTO) 80.8 % (43.0-81.0); PLATELET COUNT (AUTO) 148 /CMM (150-450); RDW COEFFICIENT OF VARIATION 15.7 (11.5-15.0); RED BLOOD CELL COUNT(AUTO) 2.79 MIL/uL (4.5-6.0); WHITE BLOOD COUNT (AUTO) 9.1 K/uL (4.3-11.0)
[2017-03-09] MEDS: PIPERACILLIN /TAZOBACTAM 2.25 G in IV D5W 50 ML IV SCH ×3 (05:13→21:26)
[2017-03-09 05:21] LABS: CALCIUM, SERUM 7.7 mg/dL (8.5-10.1); CARBON DIOXIDE 20 mmol/L (21-32); CHLORIDE 102 mmol/L (98-107); CREATININE 3.3 mg/dL (0.6-1.3); GLUCOSE 285 mg/dL (74-106); POTASSIUM 4.4 mmol/L (3.5-5.1); SODIUM SERUM 131 mmol/L (136-145); UREA NITROGEN, BLOOD 61 mg/dL (7-18)
--- NOTE | 2017-03-09 06:25 | NUR ---
BOILER REPAIRMAN: PTT RESULT=53. PER HEPARIN DRIP NON-ACS PROTOCOL, NO CHANGE ON RATE (CONTINUE AT 666 U/HR) AND WILL REDRAW PTT ON 03/10 AM LAB DRAW. NO ACTIVE BLEEDING AT THIS TIME. NO SIGNIFICANT MELANIE. TOLERATING GTF AT 60ML/HR AND WILL ENDORSE TO DAY SHIFT TO INCREASE RESHMA TO MAX GOAL RATE OF 70ML/HR. OFF LEVOPHED SINCE 6AM. HOB AT 45 DEGREES. SAFETY PRECAUTION NOTED AT ALL TIMES.
[2017-03-09] MEDS ORDERED: NOREPINEPHRINE 4 MG/4 ML AMPUL IV ONE (06:42)
[2017-03-09] MEDS: NOREPINEPHRINE 8 MG in IV D5W 500 ML IV PRN (06:51)
--- NOTE | 2017-03-09 07:40 | NUR ---
CAR RECORD CLERK: pt.is DNR status, obtunded, reactive by pain stimuli with grimacing, flat extremities activity, can open eyes spontaneous for seconds with suction, no eyes contact/no tracking, rest, no SOB, SR, SBP over 90 now, on Levophed gtt 1mcg/cont.titrate, Heparin gtt, last PTT 53 (in goal range), continue same rate, no acute bleeding events over night, BS 285/will s/w MD to change insulin SS?, OGTF residual WNL, O2 sat. WNL, waiting head CT result, was in room, updated with all above, see new orders
[2017-03-09] MEDS: ERYTHROMYCIN BASE OPHTH 3.5 GM TUBE EACHEYE SCH ×3 (07:43→16:47)
[2017-03-09] MEDS: LEVOTHYROXINE SODIUM 50 MCG TABLET PO SCH (07:43)
[2017-03-09] MEDS: FAMOTIDINE/PF INJ 20 MG/2 ML VIAL IV SCH (08:31)
[2017-03-09] MEDS: Z GUARD REMEDY 2 OZ OINT TP SCH (08:31)
[2017-03-09] MEDS: ASPIRIN EC 81 MG TABLET.DR PO SCH (08:31)
[2017-03-09] MEDS: LACTOBACILLUS RHAMNOSUS GG 1 EACH CAP.SPRINK PO SCH ×2 (08:31→16:47)
--- NOTE | 2017-03-09 08:48 | NUR ---
POLYSOMNOGRAPHY TECHNOLOGIST: pt. is in room, updated with pt.current condition, VS, I/O, orders, POC
[2017-03-09] MEDS ORDERED: DEXTROSE 50%-WATER 50 ML DISP.SYRIN IV PRN (12:00)
--- NOTE | 2017-03-09 12:15 | NUR ---
RESIDENT ASSISTANT CNA: BS 320, insulin NPO SS switched for moderate SS, 12 units R.insulin given
--- NOTE | 2017-03-09 15:15 | NUR ---
AIRPORT OPERATIONS SUPERVISOR: is in room, updated with pt.current condition, VS, Heparin, Levophed gtts, detailed spoke with pt.family re prognosis, POC
--- NOTE | 2017-03-09 15:35 | NUR ---
WELDING TECHNICIAN: is in room, updated with pt.current condition, spoke with pt., family with POA, decision maker confirmed verification for probably next comfortable care POC
[2017-03-09] MEDS: HYDROMORPHONE INJ 2 MG/ML DISP.SYRIN IV PRN (16:41)
--- NOTE | 2017-03-09 16:45 | NUR ---
TALENT ACQUISITION PROGRAM MANAGER: pt.is grimacing with suction (-11/28), bitting ETT, RR up to 28, O2sat. WNL, out of sedation during last 4 days, Dilaudid 0.25mg IV given
[2017-03-09] MEDS: GLYTROL 1,000 ML BAG GT PRN (18:33)
--- NOTE | 2017-03-09 18:47 | NUR ---
MINI SHIFTER: pt.is rest, tolerated well with AC vent mode, obtunded, O2sat., RR WNL, SR, Levophed 1.5mcg now, SBP over 90, sensitive for titration by small doses, OGTF residual WNL, same Heparin gtt rate, no acute bleeding events during shift, BS 315/covered with 12units insulin, pt. is in room, got head CT report, spoke with charge nurse for POC
--- NOTE | 2017-03-09 19:30 | NUR ---
MUSIC BOX MECHANIC INITIAL NOTE RECEIVED REPORT FROM RON GARCIA. PT IN BED. OBTUNDED. ON VENT, TOLERATING CURRENT VENT SETTINGS. LUNG SOUNDS RHONCHI. BOWEL SOUNDS PRESENT, OJ TUBE IN PLACE WITH GLYTROL RUNNING AT 70, 10 CC RESIDUAL NOTED. PALMER INTACT AND DRAINING YELLOW URINE. PULSES PRESENT. REPOSITIONED FOR COMFORT. BED IN LOW LOCKED POSITION. WILL CONTINUE TO MONITOR.
--- NOTE | 2017-03-09 21:00 | NUR ---
COMMERCIAL LOAN CLOSER AT BEDSIDE. PT IN BED, BP STABLE FOR NOW ON LEVOPHED. ORAL CARE PROVIDED. WILL CONTINUE TO MONITOR.
[2017-03-09] MEDS: ATORVASTATIN 40 MG TABLET PO SCH (21:26)
[2017-03-09] MEDS: HEPARIN INFUSION/D5W 500 ML IV PRN (23:43)
[2017-03-10] VITALS (76 sets, daily range): BP systolic 89–138; BP diastolic 49–94
[2017-03-10] MEDS: PIPERACILLIN /TAZOBACTAM 2.25 G in IV D5W 50 ML IV SCH ×3 (05:14→21:06)
[2017-03-10] MEDS: BLOOD SUGAR DIAGNOSTIC 1 EACH STRIP IN SCH ×3 (05:15→17:50)
[2017-03-10] MEDS: INSULIN REGULAR, HUMAN 100 UNIT/ML 3 ML VIAL SQ PRN ×3 (05:16→17:53)
[2017-03-10 05:20] LABS: BASOPHILS % (AUTO) 0.1 % (0.0-2.0); EOSINOPHILS # (AUTO) 0.4 /CMM (0.0-0.7); EOSINOPHILS % (AUTO) 4.5 % (0.0-6.0); HEMATOCRIT 26 % (39-51); HEMOGLOBIN 8.4 g/dL (13.5-17.5); LYMPHOCYTES # (AUTO) 0.5 /CMM (0.8-4.8); LYMPHOCYTES % (AUTO) 6.1 % (20.0-44.0); MEAN CORPUSCULAR HEMOGLOBIN 31 PG (26.0-33.0); MEAN CORPUSCULAR HGB CONC 32 g/dl (31.0-36.0); MEAN CORPUSCULAR VOLUME 96 fL (80-96); MONOCYTES # (AUTO) 0.7 /CMM (0.1-1.30); MONOCYTES % (AUTO) 8.3 % (2.0-12.0); NEUTROPHILS # (AUTO) 7.3 /CMM (1.8-8.9); PLATELET COUNT (AUTO) 186 /CMM (150-450); RDW COEFFICIENT OF VARIATION 15.4 (11.5-15.0); RED BLOOD CELL COUNT(AUTO) 2.71 MIL/uL (4.5-6.0)
[2017-03-10 05:30] LABS: CALCIUM, SERUM 7.5 mg/dL (8.5-10.1); GLUCOSE 250 mg/dL (74-106); UREA NITROGEN, BLOOD 67 mg/dL (7-18)
[2017-03-10 05:39] LABS: CARBON DIOXIDE 20 mmol/L (21-32); CHLORIDE 103 mmol/L (98-107); POTASSIUM 4.3 mmol/L (3.5-5.1); SODIUM SERUM 136 mmol/L (136-145)
--- NOTE | 2017-03-10 07:30 | NUR ---
ICE SKATER RECEIVED PATIENT ASLLEP ON BED WITH MECHANICAL VENTILATORY SUPPORT SATURATING 98& ON LEVOPHED DRIP AND HEPAIN DRIP AFEBRILE (+) GAG REFLEX NOTED BLOOD PRESSURE MONITORED CLOSELY WITH PALMER CATHETER DRAINING TO YELLOWISH URINE MODERATE IN AMOUNT
[2017-03-10] MEDS: LEVOTHYROXINE SODIUM 50 MCG TABLET PO SCH (08:01)
[2017-03-10] MEDS: ASPIRIN EC 81 MG TABLET.DR PO SCH (08:33)
[2017-03-10] MEDS: FAMOTIDINE/PF INJ 20 MG/2 ML VIAL IV SCH (08:33)
[2017-03-10] MEDS: LACTOBACILLUS RHAMNOSUS GG 1 EACH CAP.SPRINK PO SCH ×2 (08:33→17:50)
[2017-03-10] MEDS: ERYTHROMYCIN BASE OPHTH 3.5 GM TUBE EACHEYE SCH ×3 (08:34→17:50)
[2017-03-10] MEDS: Z GUARD REMEDY 2 OZ OINT TP SCH (08:37)
[2017-03-10] MEDS: NOREPINEPHRINE 8 MG in IV D5W 500 ML IV PRN ×2 (09:56→12:30)
[2017-03-10] MEDS: GLYTROL 1,000 ML BAG GT PRN (10:47)
[2017-03-10] MEDS ORDERED: DEXTROSE 50%-WATER 50 ML DISP.SYRIN IV PRN (11:00)
[2017-03-10] MEDS ORDERED: HYDROMORPHONE 1 MG/1 ML DISP.SYRIN IV PRN (11:00)
--- NOTE | 2017-03-10 11:26 | NUR ---
TOOL PLANER SET UP OPERATOR SEEN AND EXAMINED BY DR. MATTHEWS AND DR. DUCKWORTH
--- NOTE | 2017-03-10 19:30 | NUR ---
HOME HEALTH SCHEDULER INITIAL NOTE RECEIVED REPORT FROM ARACELIS GARCIA. PT IN BED, OBTUNDED. ON VENT, TOLERATING VENT SETTINGS. LUNG SOUNDS RHONCHI. BOWEL SOUNDS PRESENT. PALMER INTACT AND DRAINING YELLOW URINE. IV PATENT AND INTACT. PULSES PRESENT. GENERALIZED EDEMA. REPOSITIONED FOR COMFORT. BED IN LOW LOCKED POSITION. WILL CONTINUE TO MONITOR.
[2017-03-10] MEDS: ATORVASTATIN 40 MG TABLET PO SCH (21:06)
--- NOTE | 2017-03-10 21:45 | NUR ---
SUPERVISOR CIGAR PROCESSING AT BEDSIDE. STATES THAT SHE WANTS TO PROCEED WITH COMFORT ONLY CARE OF 03/11 @1400. WILL ENDORSE TO ONCOMING SHIFT. WILL CONTINUE TO MONITOR.
[2017-03-11] VITALS (31 sets, daily range): BP systolic 80–131; BP diastolic 48–78
[2017-03-11] MEDS: BLOOD SUGAR DIAGNOSTIC 1 EACH STRIP IN SCH ×3 (00:31→11:35)
[2017-03-11] MEDS: INSULIN REGULAR, HUMAN 100 UNIT/ML 3 ML VIAL SQ PRN ×3 (00:32→11:35)
[2017-03-11] MEDS ORDERED: HYDROMORPHONE INJ 2 MG/ML DISP.SYRIN ONE (00:42)
[2017-03-11] MEDS: GLYTROL 1,000 ML BAG GT PRN (00:57)
--- NOTE | 2017-03-11 03:27 | NUR ---
TIRE REPAIRMAN REPORT ENDORSED TO ALISHA GRACIA FOR MELANIE. PT STABLE AT THIS TIME.
[2017-03-11] MEDS: PIPERACILLIN /TAZOBACTAM 2.25 G in IV D5W 50 ML IV SCH ×2 (04:38→13:00)
[2017-03-11 05:18] LABS: BASOPHILS % (AUTO) 0.1 % (0.0-2.0); EOSINOPHILS # (AUTO) 0.5 /CMM (0.0-0.7); EOSINOPHILS % (AUTO) 5.7 % (0.0-6.0); HEMATOCRIT 25 % (39-51); HEMOGLOBIN 8.3 g/dL (13.5-17.5); LYMPHOCYTES # (AUTO) 0.6 /CMM (0.8-4.8); LYMPHOCYTES % (AUTO) 7.4 % (20.0-44.0); MEAN CORPUSCULAR HEMOGLOBIN 31 PG (26.0-33.0); MEAN CORPUSCULAR HGB CONC 33 g/dl (31.0-36.0); MEAN CORPUSCULAR VOLUME 95 fL (80-96); MONOCYTES # (AUTO) 0.7 /CMM (0.1-1.30); NEUTROPHILS # (AUTO) 6.9 /CMM (1.8-8.9); NEUTROPHILS % (AUTO) 78.8 % (43.0-81.0); PLATELET COUNT (AUTO) 229 /CMM (150-450); RDW COEFFICIENT OF VARIATION 15.3 (11.5-15.0); RED BLOOD CELL COUNT(AUTO) 2.69 MIL/uL (4.5-6.0); WHITE BLOOD COUNT (AUTO) 8.8 K/uL (4.3-11.0)
[2017-03-11 05:33] LABS: CALCIUM, SERUM 7.5 mg/dL (8.5-10.1); CARBON DIOXIDE 23 mmol/L (21-32); CHLORIDE 104 mmol/L (98-107); CREATININE 2.8 mg/dL (0.6-1.3); GLUCOSE 196 mg/dL (74-106); POTASSIUM 4.7 mmol/L (3.5-5.1); SODIUM SERUM 136 mmol/L (136-145); UREA NITROGEN, BLOOD 68 mg/dL (7-18)
--- NOTE | 2017-03-11 07:35 | NUR ---
MASS SPECTROMETRY MANAGER RECEIVED PATIENT FROM THE PREVIOUS SHIFT. PATIENT IS IN BED. RESTING COMFORTABLY. NO ACUTE DISTRESS NOTED. VENT SETTINGS REVIEWED AND VERIFIED. TURNED AND REPOSITIONED FOR COMFORT AND WOUND PREVENTION. WILL CONTINUE TO MONITOR AND PROVIDE CARE.
--- NOTE | 2017-03-11 08:01 | NUR ---
RT NOTE PT IN STABLE CONDITION. PT VENTILATED VIA 7.5 ETT AT 23 CM ON LIP. SETTINGS PRESCRIBED AC 14 600 40% +0. ALARMS SET PER PROTOCOL AND AUDIBLE. AMBU BAG AT BED SIDE. VENT PLUGGED IN TO RED OUTLET. BILATERAL CHEST RISE NOTED. NO DISTRESS NOTED. WILL CONTINUE TO MONITOR. Addendum: 03/11/17 at 0804 by CHAY RICHMOND RT Amended: Links added.
[2017-03-11] MEDS: ASPIRIN EC 81 MG TABLET.DR PO SCH (08:02)
[2017-03-11] MEDS: LEVOTHYROXINE SODIUM 50 MCG TABLET PO SCH (08:02)
[2017-03-11] MEDS: FAMOTIDINE/PF INJ 20 MG/2 ML VIAL IV SCH (08:02)
[2017-03-11] MEDS: Z GUARD REMEDY 2 OZ OINT TP SCH (08:02)
[2017-03-11] MEDS: ERYTHROMYCIN BASE OPHTH 3.5 GM TUBE EACHEYE SCH (08:02)
[2017-03-11] MEDS: LACTOBACILLUS RHAMNOSUS GG 1 EACH CAP.SPRINK PO SCH (08:02)
[2017-03-11] MEDS ORDERED: MORPHINE SULFATE INJ 2 MG/ML DISP.SYRIN IV PRN (10:30)
[2017-03-11] MEDS ORDERED: MORPHINE SULFATE 30 MG in IV NS 0.9% 28 ML, PCA TOTAL VOLUME 1 BAG IV PRN ×3 (10:30)
[2017-03-11] MEDS ORDERED: HYDROMORPHONE INJ 2 MG/ML DISP.SYRIN IV ONE (12:30)
[2017-03-11] MEDS ORDERED: LORAZEPAM INJ 2 MG/ML VIAL IV PRN (12:30)
[2017-03-11] MEDS ORDERED: MORPHINE SULFATE INJ 4 MG/ML DISP.SYRIN IV SCH (12:30)
[2017-03-11] MEDS ORDERED: DC PROPOFOL WHEN EXTUBATED XX PRN (14:30)
--- NOTE | 2017-03-11 14:35 | NUR ---
RT NOTE PT EXTUBATED ORDERED. FAMILY AT BED SIDE. Addendum: 03/11/17 at 1436 by CHAY RICHMOND RT Amended: Links added.
--- NOTE | 2017-03-11 14:52 | NUR ---
PIT STEWARD PATIENT WAS EXTUBATED BY RT PER PRIMARY ADMINISTRATION SPECIALIST ORDER. MORPHINE DRIP INCREASED TO 4MG/HR PER SCALE.
--- NOTE | 2017-03-11 15:22 | NUR ---
NOTE PATIENT NOTED TO BE PULSELESS. BLOOD PRESSURE UNREADABLE. ASYSTOLE ON MONITOR. FAMILY AT BEDSIDE. CHARGE NURSE HANS GAMBOA RN PRONOUNCED PATIENT . FAMILY TO CALL [facility]. SPOKE TO CIRILO FROM [facility]. [facility] REFERRAL NUMBER [id number]. PATIENT IS NOT A CANDIDATE FOR [employer]GAN TRANSPL[employer] DUE TO AGE REQUIREMENT.
--- NOTE | 2017-03-11 15:22 | NUR ---
RN NOTE PT DNR, ON COMFORT CARE. FOUND PT APNEIC, ASYSTOLIC. PUPILS FIXED AND DILATED. PRONOUNCED .
== END 2017-03-11 17:12 | disposition expired | DRG 207 ==
LOC: ER 23:35 → TELE 03-02 02:16 → ICU 03-02 17:17
PROVIDERS: ADMIT Nurse Practitioner Acute Care
PROC: 5A1955Z Respiratory Ventilation, Greater than 96 Consecutive Hours (ICD-10-PCS; principal; 2017-03-02)
PROC: 0BH17EZ Insertion of Endotracheal Airway into Trachea, Via Natural or Artificial Opening (ICD-10-PCS; 2017-03-02)
PROC: 30233N1 Transfusion of Nonautologous Red Blood Cells into Peripheral Vein, Percutaneous Approach (ICD-10-PCS; 2017-03-02)
PROC: 5A12012 Performance of Cardiac Output, Single, Manual (ICD-10-PCS; 2017-03-02)
PROC: 02HV33Z Insertion of Infusion Device into Superior Vena Cava, Percutaneous Approach (ICD-10-PCS; 2017-03-03)
PROC: B548ZZA Ultrasonography of Superior Vena Cava, Guidance (ICD-10-PCS; 2017-03-03)
DX: J96.00 Acute respiratory failure, unspecified whether with hypoxia or hypercapnia (principal); I21.4 Non-ST elevation (NSTEMI) myocardial infarction; I26.99 Other pulmonary embolism without acute cor pulmonale; K72.00 Acute and subacute hepatic failure without coma; N17.0 Acute kidney failure with tubular necrosis; J94.2 Hemothorax; G93.1 Anoxic brain damage, not elsewhere classified; G93.40 Encephalopathy, unspecified; I13.0 Hypertensive heart and chronic kidney disease with heart failure and stage 1 through stage 4 chronic kidney disease, or unspecified chronic kidney disease; D62 Acute posthemorrhagic anemia; E87.2 Acidosis; I82.403 Acute embolism and thrombosis of unspecified deep veins of lower extremity, bilateral; K92.2 Gastrointestinal hemorrhage, unspecified; Z66 Do not resuscitate; Z51.5 Encounter for palliative care; R57.0 Cardiogenic shock; I48.91 Unspecified atrial fibrillation; I50.9 Heart failure, unspecified; E11.22 Type 2 diabetes mellitus with diabetic chronic kidney disease; E11.51 Type 2 diabetes mellitus with diabetic peripheral angiopathy without gangrene; N18.3 Chronic kidney disease, stage 3 (moderate); Z98.890 Other specified postprocedural states; Z79.4 Long term (current) use of insulin; Z79.84 Long term (current) use of oral hypoglycemic drugs; Z79.899 Other long term (current) drug therapy; E87.5 Hyperkalemia; E78.5 Hyperlipidemia, unspecified; I25.10 Atherosclerotic heart disease of native coronary artery without angina pectoris; Z86.718 Personal history of other venous thrombosis and embolism; I70.0 Atherosclerosis of aorta; E03.9 Hypothyroidism, unspecified; I25.2 Old myocardial infarction; D64.9 Anemia, unspecified; R31.9 Hematuria, unspecified; I44.0 Atrioventricular block, first degree
CPT/HCPCS: 31720; 36415; 36569; 36600; 70450-TC; 71010-TC; 71250-TC; 80048-TC; 80053-TC; 80061-TC; 80076-TC; 80202-TC; 82150-TC; 82272-TC; 82746; 82803-TC; 82962-TC; 83735-TC; 84100-TC; 84443-TC; 84484-TC; 85025-TC; 85378-TC; 85610-TC; 85730-TC; 86850-TC; 86921-TC; 87040-TC; 87070-TC; 87081-TC; 92950-TC; 93307-TC; 93970-TC; 94002-TC; 94003-TC; 94799-TC; 95819-TC; 99082-TC; A4216; A4606; A6402; A6403; C1751; J0171; J1170; J1644; J1650; J1815; J2270; J2543; J3370; J3475; J3490; J7030; J7050; J7060; P9016-BL; Q9967; Z7610